=== PATIENT | female | born 1965 | race Caucasian/White ===

== ENCOUNTER 2016-10-21 15:14 | Emergency (ER) | payer BC, OTHER ==
--- NOTE | 2016-10-21 17:46 | ED ---
General Adult HPI - General Chief complaint: GI Bleed Stated complaint: rectal bleeding Time Seen by Provider: 10/21/16 17:23 Source: patient, RN notes reviewed Mode of arrival: ambulatory Limitations: no limitations - History of Present Illness Initial comments: 51-year-old female presenting for GI bleeding. Patient states she noticed a small amount of blood when wiping after a bowel movement this morning at home. She states that she had planned follow-up with her regular doctor but she went to work and at work she noticed that she had persistent bleeding. She states she called her doctor's office recommended she go to the ER further evaluation and treatment. She denies any history of GI bleeding. She states she did have a colonoscopy a few years ago that was unremarkable at that time. She denies any history of diverticulosis or diverticulitis. She denies any abdominal pain associated with this. She denies any nausea or vomiting. She denies any chest pain or first about - Related Data Home Medications Medication Instructions Recorded Confirmed Cholecalciferol [Vitamin D3] 1,000 unit PO DAILY 09/09/14 10/21/16 Citalopram Hydrobromide [CeleXA] 20 mg PO DAILY 09/09/14 10/21/16 Diclofenac Potassium [Cataflam] 50 mg PO BID 09/09/14 10/21/16 Multivitamins, Thera [Multivitamin] 1 tab PO DAILY 09/09/14 10/21/16 Omeprazole [PriLOSEC] 20 mg PO AC-BRKFST 09/09/14 10/21/16 Atorvastatin [Lipitor] 40 mg PO DAILY 10/21/16 10/21/16 HYDROcodone/APAP 7.5-325MG [[place] 1 tab PO Q6HR PRN 10/21/16 10/21/16 7.5-325] metFORMIN HCL 1,000 mg PO BID 10/21/16 10/21/16 Previous Rx's Medication Instructions Recorded Phenyleph/Mineral Oil/Petrolat 1 applic RECTAL Q4HR #57 gm 10/21/16 [Preparation H Ointment] Allergies Allergy/AdvReac Type Severity Reaction Status Date / Time No Known Allergies Allergy Verified 10/21/16 18:26 Review of Systems ROS Statement: Those systems with pertinent positive or pertinent negative responses have been documented in the HPI. ROS Other: All systems not noted in ROS Statement are negative. Past Medical History Past Medical History: Diabetes Mellitus, Osteoarthritis (OA) Additional Past Medical History / Comment(s): KIDNEY STONES History of Any Multi-Drug Resistant Organisms: MRSA Date of last positivie culture/infection: 2011 MDRO Source:: abdomen Past Surgical History: Adenoidectomy, Cholecystectomy, Hysterectomy, Tonsillectomy Additional Past Surgical History / Comment(s): bilateral carpal tunnel release , right shoulder, eyes,ABDOMINAL WOUND Past Anesthesia/Blood Transfusion Reactions: No Reported Reaction Past Psychological History: Depression Smoking Status: Former smoker Past Alcohol Use History: None Reported Past Drug Use History: None Reported - Past Family History Sister(s) Family Medical History: Cancer General Exam - General Exam Comments Initial Comments: General: Awake and Alert. No acute distress. Does not appear acutely ill. Obese. Eyes: HERIBERTO, EOM intact. No nystagmus. No scleral icterus. HENT: Atraumatic, normocephalic. Mucous membranes moist. Trachea midline. Neck: The neck is supple, there is no tenderness or JVD. Cardiovascular: Regular rate and rhythm. No murmur, rub, or gallop is appreciated. Distal pulses intact. Respiratory: Lungs are clear to auscultation bilaterally. No wheezes, rales, rhonchi. No respiratory distress. Gastrointestinal: Soft, Nontender. No rebound or guarding. Non-distended. No masses or organomegaly noted. No CVA tenderness. Genitourinary: Rectal exam with internal and external hemorrhoids present. There is red blood around the anus and internal. There are no fissures. There are no significant internal masses. Normal rectal tone. Nurse Margarita present for rectal exam Musculoskeletal: No tenderness. Normal ROM. No gross deformity. No strength deficits. Neurological: A&Ox3. CN II-XII grossly intact, There are no obvious motor or sensory deficits. Coordination appears grossly intact. Speech is normal. Skin: Skin is warm and dry and no rashes or lesions are noted. Psychiatric: Cooperative, appropriate mood & affect, normal judgment. Limitations: no limitations Course Vital Signs 10/21/16 10/21/16 16:24 18:33 Temperature 98.8 F 97.8 F Pulse Rate 65 59 L Respiratory 18 16 Rate Blood Pressure 136/71 128/60 O2 Sat by Pulse 98 99 Oximetry Medical Decision Making - Medical Decision Making 51-year-old female presented for rectal bleeding. Exam with internal and external hemorrhoids. This is likely source of bleeding as there is red blood present on rectal exam. There is no abdominal tenderness or pain on exam or history. Lab work with stable hemoglobin. BMP is stable. Occult stool testing was positive. She was reevaluated and remained stable. Updated on results. Discussed treatment for hemorrhoids as likely cause of bleed, however discussed close follow-up with PCP for further monitoring. Discussed need for repeat colonoscopy for further evaluation as well. Patient states she will get referral for this through her PCP. Discussed concerning signs symptoms for immediate return to the ED. Patient is agreeable with plan discharge home. - Lab Data Result diagrams: 10/21/16 17:35 10/21/16 17:35 Lab Results 10/21/16 10/21/16 10/21/16 Range/Units 17:35 17:35 17:35 WBC 9.1 (3.8-10.6) k/uL RBC 4.45 (3.80-5.40) m/uL Hgb 13.6 (11.4-16.0) gm/dL Hct 40.5 (34.0-46.0) % MCV 91.0 (80.0-100.0) fL MCH 30.4 (25.0-35.0) pg MCHC 33.5 (31.0-37.0) g/dL RDW 13.0 (11.5-15.5) % Plt Count 315 (150-450) k/uL Neutrophils % 62 % Lymphocytes % 27 % Monocytes % 4 % Eosinophils % 4 % Basophils % 1 % Neutrophils # 5.7 (1.3-7.7) k/uL Lymphocytes # 2.5 (1.0-4.8) k/uL Monocytes # 0.4 (0-1.0) k/uL Eosinophils # 0.3 (0-0.7) k/uL Basophils # 0.1 (0-0.2) k/uL Sodium 141 (137-145) mmol/L Potassium 4.3 (3.5-5.1) mmol/L Chloride 103 (98-107) mmol/L Carbon Dioxide 31 H (22-30) mmol/L Anion Gap 7 mmol/L BUN 14 (7-17) mg/dL Creatinine 0.50 L (0.52-1.04) mg/dL Est GFR (MDRD) Af Amer >60 (>60 ml/min/1.73 sqM) Est GFR (MDRD) Non-Af >60 (>60 ml/min/1.73 sqM) Glucose 160 H (74-99) mg/dL Calcium 9.3 (8.4-10.2) mg/dL Total Bilirubin 0.5 (0.2-1.3) mg/dL AST 26 (14-36) U/L ALT 33 (9-52) U/L Alkaline Phosphatase 90 (38-126) U/L Total Protein 6.5 (6.3-8.2) g/dL Albumin 3.7 (3.5-5.0) g/dL Lipase 50 (23-300) U/L Stool Occult Blood Positive H (Negative) Disposition Clinical Impression: Rectal bleeding, Hemorrhoids Disposition: HOME SELF-CARE Condition: Stable Instructions: Gastrointestinal Bleeding (ED), Hemorrhoids (ED) Additional Instructions: Please discussed arranging a colonoscopy with your primary doctor Prescriptions: Phenyleph/Mineral Oil/Petrolat [Preparation H Ointment] 1 applic RECTAL Q4HR # 57 gm Referrals: Jordin Whitley DO [Primary Care Provider] - 1-2 days
[2016-10-21 17:47] LABS: Basophils # (A) 0.1 k/uL (0-0.2); Basophils % (A) 1 %; CH 30.9; CHCM 34.1; Eosinophils # (A) 0.3 k/uL (0-0.7); Eosinophils % (A) 4 %; HCT 40.5 % (34.0-46.0); HDW 2.53; HGB 13.6 gm/dL (11.4-16.0); Luc # (Auto) 0.24; Luc % (Auto) 3; Lymphocytes # (A) 2.5 k/uL (1.0-4.8); Lymphocytes % (A) 27 %; MCH 30.4 pg (25.0-35.0); MCHC 33.5 g/dL (31.0-37.0); Mean Platelet Volume 7.7; Monocytes # (A) 0.4 k/uL (0-1.0); Monocytes % (A) 4 %; Neutrophils # (A) 5.7 k/uL (1.3-7.7); Neutrophils % (A) 62 %; RBC 4.45 m/uL (3.80-5.40); WBC 9.1 k/uL (3.8-10.6); WBC (Perox) 8.89
[2016-10-21 18:06] LABS: ALT 33 U/L (9-52); AST 26 U/L (14-36); Alkaline Phosphatase 90 U/L (38-126); Anion Gap 7 mmol/L; Blood Urea Nitrogen 14 mg/dL (7-17); Calcium 9.3 mg/dL (8.4-10.2); Carbon Dioxide 31 mmol/L (22-30); Chloride 103 mmol/L (98-107); Glucose 160 mg/dL (74-99); Non-African American GFR(MDRD) >60 (>60 ml/min/1.73 sqM); Potassium 4.3 mmol/L (3.5-5.1); Sodium 141 mmol/L (137-145); Total Bilirubin 0.5 mg/dL (0.2-1.3); Total Protein 6.5 g/dL (6.3-8.2)
[2016-10-21 18:34] VITALS: BP 128/60; PULSE 59; RESP 16; TEMP 97.8
== END 2016-10-21 18:52 | disposition home or self-care (01) ==
LOC: EC 15:14
DX: K64.8 Other hemorrhoids (principal); E11.9 Type 2 diabetes mellitus without complications; M19.90 Unspecified osteoarthritis, unspecified site; F32.9 Major depressive disorder, single episode, unspecified; Z79.1 Long term (current) use of non-steroidal anti-inflammatories (NSAID); Z79.84 Long term (current) use of oral hypoglycemic drugs; Z79.899 Other long term (current) drug therapy; Z87.891 Personal history of nicotine dependence
CPT/HCPCS: 36415; 80053; 82272; 83690; 85025; 99284

== ENCOUNTER → 2017-05-13 | Outpatient (CLI) | payer BC, OTHER ==
--- NOTE | 2017-05-14 07:18 | MM ---
Reason for exam: screening (asymptomatic). Last mammogram was performed 1 year ago. History: Patient is postmenopausal, has history of high-risk lesion on a previous biopsy at age 41, and is nulliparous. High risk left mammotome panel of the left breast, March 23, 2007. Physical Findings: A clinical breast exam by your physician is recommended on an annual basis and results should be correlated with mammographic findings. MG Screening Mammo w CAD Bilateral CC and MLO view(s) were taken. Prior study comparison: May 13, 2016, bilateral MG screening mammo w CAD. April 15, 2015, bilateral MG screening mammo w CAD. There are scattered fibroglandular densities. No suspicious abnormality. No significant changes when compared with prior studies. ASSESSMENT: Negative, BI-RAD 1 RECOMMENDATION: Routine screening mammogram of both breasts in 1 year.
== END | disposition home or self-care (01) ==
LOC: RADMAMWWP 08:13
PROVIDERS: ATTEND Family Medicine
DX: Z12.31 Encounter for screening mammogram for malignant neoplasm of breast (principal)

== ENCOUNTER 2017-05-24 12:49 | Emergency (ER) | payer BC, OTHER ==
[2017-05-24] MEDS ORDERED: ASPIRIN 81 MG PO STA (12:59)
--- NOTE | 2017-05-24 13:02 | ED ---
General Adult HPI - General Chief complaint: Abdominal Pain Stated complaint: Abd Pain Time Seen by Provider: 05/24/17 12:55 Source: patient, RN notes reviewed Mode of arrival: ambulatory Limitations: no limitations - History of Present Illness Initial comments: 51-year-old female presents emergency per chief complaint of epigastric abdominal pain and chest pain and back pain. Patient states that today so she is working in the [employer]. Patient states that for about a week now she's had this pain to the right side of her chest epigastric area right upper quadrant and into her back. She states the pain is chest is constant terrible pain. She has nausea without vomiting. She went to her doctor on was evaluated he said it might be gallstones. She states she was scheduled for an ultrasound for 2 weeks but she does not feels if she could weeks along. Patient states that there is a shortness of breath with this. Patient states that she was concerned because she just continues to have this discomfort. Patient states she is not currently having any other symptoms at this time. Patient denies any recent fever, chills, shortness of breath, vomiting, numbness or tingling, dysuria or hematuria, constipation or diarrhea, headaches or visual changes, or any other current symptoms. - Related Data Home Medications Medication Instructions Recorded Confirmed Citalopram Hydrobromide [CeleXA] 20 mg PO DAILY 09/09/14 05/24/17 Diclofenac Potassium [Cataflam] 50 mg PO DAILY 09/09/14 05/24/17 Multivitamins, Thera [Multivitamin] 1 tab PO DAILY 09/09/14 05/24/17 Omeprazole [PriLOSEC] 20 mg PO AC-BRKFST 09/09/14 05/24/17 HYDROcodone/APAP 7.5-325MG [[place] 1 tab PO Q6HR PRN 10/21/16 05/24/17 7.5-325] metFORMIN HCL [Glucophage] 500 mg PO DAILY 05/24/17 05/24/17 Allergies Allergy/AdvReac Type Severity Reaction Status Date / Time No Known Allergies Allergy Verified 05/24/17 13:54 Review of Systems ROS Statement: Those systems with pertinent positive or pertinent negative responses have been documented in the HPI. ROS Other: All systems not noted in ROS Statement are negative. Past Medical History Past Medical History: Diabetes Mellitus, Osteoarthritis (OA) Additional Past Medical History / Comment(s): KIDNEY STONES History of Any Multi-Drug Resistant Organisms: MRSA Date of last positivie culture/infection: 2011 MDRO Source:: abdomen Past Surgical History: Adenoidectomy, Cholecystectomy, Hysterectomy, Tonsillectomy Additional Past Surgical History / Comment(s): bilateral carpal tunnel release , right shoulder, eyes,ABDOMINAL WOUND, salivary gland Past Anesthesia/Blood Transfusion Reactions: No Reported Reaction Past Psychological History: Depression Smoking Status: Former smoker Past Alcohol Use History: None Reported Past Drug Use History: None Reported - Past Family History Sister(s) Family Medical History: Cancer General Exam - General Exam Comments Initial Comments: General: The patient is awake and alert, in no distress, and does not appear acutely ill. Eye: Pupils are equal, round and reactive to light, extra-ocular movements are intact; there is normal conjunctiva bilaterally. No signs of icterus. Ears, nose, mouth and throat: There are moist mucous membranes and no oral lesions. Neck: The neck is supple, there is no tenderness. Cardiovascular: There is a regular rate and rhythm. No murmur, rub or gallop is appreciated. Respiratory: Lungs are clear to auscultation, respirations are non-labored, breath sounds are equal. No wheezes, stridor, rales, or rhonchi. Tenderness patient on the right upper chest wall and along the upper right side of the back Gastrointestinal: Soft, non-distended, non-tender abdomen without masses or organomegaly noted. There is no rebound or guarding present. No CVA tenderness. Bowel sounds are unremarkable. Back: There is no tenderness to palpation in the midline. There is no obvious deformity. No rashes noted. Musculoskeletal: Normal ROM, no tenderness, There is no pedal edema. There is no calf tenderness or swelling. Sensation intact. Pulses equal bilaterally 2+. Neurological: CN II-XII intact, There are no obvious motor or sensory deficits. Coordination appears grossly intact. Speech is normal. Skin: Skin is warm and dry and no rashes or lesions are noted. Psychiatric: Cooperative, appropriate mood & affect, normal judgment. Limitations: no limitations Course Vital Signs 05/24/17 05/24/17 12:50 13:53 Temperature 98.7 F Pulse Rate 56 L 53 L Respiratory 18 16 Rate Blood Pressure 174/72 154/66 O2 Sat by Pulse 95 93 L Oximetry EKG Findings - EKG Comments: EKG Findings:: Sinus bradycardia bpm, normal axis, no atopy, no S-T depressions or elevations, Medical Decision Making - Medical Decision Making 51-year-old female presents for epigastric right upper quadrant and tender chest wall and upper back pain. At this time patient has been having the pain since . Find cardiac workup is negative. At this time ultrasound showing fatty liver infiltration most likely this is causing the patient's type pain. We discussed follow-up with her doctor we discussed [facility] [place] and all the patient's questions. She stated that she understood and she is in agreement with plan. All questions have been answered. She will be discharged. - Lab Data Result diagrams: 05/24/17 13:08 05/24/17 13:54 Lab Results 05/24/17 05/24/17 05/24/17 Range/Units 13:08 13:08 13:08 WBC 5.5 (3.8-10.6) k/uL RBC 4.50 (3.80-5.40) m/uL Hgb 13.3 (11.4-16.0) gm/dL Hct 40.5 (34.0-46.0) % MCV 90.0 (80.0-100.0) fL MCH 29.5 (25.0-35.0) pg MCHC 32.8 (31.0-37.0) g/dL RDW 12.9 (11.5-15.5) % Plt Count 359 (150-450) k/uL Neutrophils % 62 % Lymphocytes % 26 % Monocytes % 5 % Eosinophils % 6 % Basophils % 1 % Neutrophils # 3.4 (1.3-7.7) k/uL Lymphocytes # 1.4 (1.0-4.8) k/uL Monocytes # 0.3 (0-1.0) k/uL Eosinophils # 0.3 (0-0.7) k/uL Basophils # 0.1 (0-0.2) k/uL PT 11.7 (9.0-12.0) sec INR 1.2 H (<1.2) APTT 25.4 (22.0-30.0) sec Sodium (137-145) mmol/L Potassium (3.5-5.1) mmol/L Chloride (98-107) mmol/L Carbon Dioxide (22-30) mmol/L Anion Gap mmol/L BUN (7-17) mg/dL Creatinine (0.52-1.04) mg/dL Est GFR (MDRD) Af Amer (>60 ml/min/1.73 sqM) Est GFR (MDRD) Non-Af (>60 ml/min/1.73 sqM) Glucose (74-99) mg/dL Calcium (8.4-10.2) mg/dL Magnesium (1.6-2.3) mg/dL Total Bilirubin (0.2-1.3) mg/dL AST (14-36) U/L ALT (9-52) U/L Alkaline Phosphatase (38-126) U/L Total Creatine Kinase 105 (30-135) U/L CK-MB (CK-2) 2.1 (0.0-2.4) ng/mL CK-MB (CK-2) Rel Index 2.0 Troponin I <0.012 (0.000-0.034) ng/mL Total Protein (6.3-8.2) g/dL Albumin (3.5-5.0) g/dL Amylase (30-110) U/L Lipase (23-300) U/L Urine Color Urine Appearance (Clear) Urine pH (5.0-8.0) Ur Specific [place] (1.001-1.035) Urine Protein (Negative) Urine Glucose (UA) (Negative) Urine Ketones (Negative) Urine Blood (Negative) Urine Nitrite (Negative) Urine Bilirubin (Negative) Urine Urobilinogen (<2.0) mg/dL Ur Leukocyte Esterase (Negative) 05/24/17 05/24/17 Range/Units 13:54 14:12 WBC (3.8-10.6) k/uL RBC (3.80-5.40) m/uL Hgb (11.4-16.0) gm/dL Hct (34.0-46.0) % MCV (80.0-100.0) fL MCH (25.0-35.0) pg MCHC (31.0-37.0) g/dL RDW (11.5-15.5) % Plt Count (150-450) k/uL Neutrophils % % Lymphocytes % % Monocytes % % Eosinophils % % Basophils % % Neutrophils # (1.3-7.7) k/uL Lymphocytes # (1.0-4.8) k/uL Monocytes # (0-1.0) k/uL Eosinophils # (0-0.7) k/uL Basophils # (0-0.2) k/uL PT (9.0-12.0) sec INR (<1.2) APTT (22.0-30.0) sec Sodium 139 (137-145) mmol/L Potassium 4.0 (3.5-5.1) mmol/L Chloride 104 (98-107) mmol/L Carbon Dioxide 29 (22-30) mmol/L Anion Gap 6 mmol/L BUN 9 (7-17) mg/dL Creatinine 0.60 (0.52-1.04) mg/dL Est GFR (MDRD) Af Amer >60 (>60 ml/min/1.73 sqM) Est GFR (MDRD) Non-Af >60 (>60 ml/min/1.73 sqM) Glucose 154 H (74-99) mg/dL Calcium 9.0 (8.4-10.2) mg/dL Magnesium 1.7 (1.6-2.3) mg/dL Total Bilirubin 0.5 (0.2-1.3) mg/dL AST 28 (14-36) U/L ALT 42 (9-52) U/L Alkaline Phosphatase 104 (38-126) U/L Total Creatine Kinase (30-135) U/L CK-MB (CK-2) (0.0-2.4) ng/mL CK-MB (CK-2) Rel Index Troponin I (0.000-0.034) ng/mL Total Protein 5.9 L (6.3-8.2) g/dL Albumin 3.2 L (3.5-5.0) g/dL Amylase <30 L (30-110) U/L Lipase 44 (23-300) U/L Urine Color Yellow Urine Appearance Clear (Clear) Urine pH 8.5 H (5.0-8.0) Ur Specific [place] 1.011 (1.001-1.035) Urine Protein Negative (Negative) Urine Glucose (UA) Negative (Negative) Urine Ketones Negative (Negative) Urine Blood Negative (Negative) Urine Nitrite Negative (Negative) Urine Bilirubin Negative (Negative) Urine Urobilinogen <2.0 (<2.0) mg/dL Ur Leukocyte Esterase Negative (Negative) - Radiology Data Radiology results: report reviewed, image reviewed Disposition Clinical Impression: Fatty liver, Abdominal pain Disposition: HOME SELF-CARE Condition: Stable Instructions: Abdominal Pain (ED) Additional Instructions: Please use medication as discussed. Please follow up with family doctor if symptoms have not improved over the next two days. Please return to the emergency room if your symptoms increase or worsen or for any other concerns. Referrals: Jordin Whitley DO [Primary Care Provider] - 1-2 days Time of Disposition: 15:42
[2017-05-24 13:25] LABS: Basophils # (A) 0.1 k/uL (0-0.2); Basophils % (A) 1 %; CHCM 33.4; Eosinophils # (A) 0.3 k/uL (0-0.7); Eosinophils % (A) 6 %; HCT 40.5 % (34.0-46.0); HDW 2.43; HGB 13.3 gm/dL (11.4-16.0); Luc # (Auto) 0.08; Luc % (Auto) 2; Lymphocytes # (A) 1.4 k/uL (1.0-4.8); Lymphocytes % (A) 26 %; MCH 29.5 pg (25.0-35.0); MCHC 32.8 g/dL (31.0-37.0); Monocytes # (A) 0.3 k/uL (0-1.0); Monocytes % (A) 5 %; Neutrophils # (A) 3.4 k/uL (1.3-7.7); Neutrophils % (A) 62 %; RDW 12.9 % (11.5-15.5); WBC 5.5 k/uL (3.8-10.6); WBC (Perox) 5.52
[2017-05-24 13:38] LABS: Partial Thromboplastin Time 25.4 sec (22.0-30.0)
[2017-05-24 13:40] LABS: INR 1.2 (<1.2); Prothrombin Time 11.7 sec (9.0-12.0)
[2017-05-24 13:46] LABS: Creatine Kinase 105 U/L (30-135)
[2017-05-24 13:57] LABS: Creatine Kinase MB 2.1 ng/mL (0.0-2.4); Troponin I <0.012 ng/mL (0.000-0.034)
[2017-05-24 13:58] VITALS: RESP 16
[2017-05-24 14:19] LABS: Appearance,Urine Clear (Clear); Bilirubin,Urine Negative (Negative); Glucose,Urine (UA) Negative (Negative); Ketones,Urine Negative (Negative); Leukocyte Esterase,Urine Negative (Negative); Nitrite,Urine Negative (Negative); PH, Urine 8.5 (5.0-8.0); Protein,Urine Negative (Negative); Specific Gravity,Urine 1.011 (1.001-1.035); UA Billing (MACRO vs. MICRO) CHEM; Urobilinogen,Urine <2.0 mg/dL (<2.0)
[2017-05-24 14:27] LABS: ALT 42 U/L (9-52); AST 28 U/L (14-36); Alkaline Phosphatase 104 U/L (38-126); Amylase <30 U/L (30-110); Anion Gap 6 mmol/L; Blood Urea Nitrogen 9 mg/dL (7-17); Carbon Dioxide 29 mmol/L (22-30); Chloride 104 mmol/L (98-107); Glucose 154 mg/dL (74-99); Magnesium 1.7 mg/dL (1.6-2.3); Non-African American GFR(MDRD) >60 (>60 ml/min/1.73 sqM); Sodium 139 mmol/L (137-145); Total Bilirubin 0.5 mg/dL (0.2-1.3); Total Protein 5.9 g/dL (6.3-8.2)
--- NOTE | 2017-05-24 14:32 | XR ---
EXAMINATION TYPE: XR chest 2V DATE OF EXAM: 05/24/2017 COMPARISON: Prior chest x-ray 09/09/2014 HISTORY: Chest pain TECHNIQUE: Frontal and lateral views of the chest are obtained. FINDINGS: There is no focal air space opacity, pleural effusion, or pneumothorax seen. The cardiac silhouette size is stable. There are overlying cardiac leads. Postop change noted to the right should er. Surgical clips present in the right upper quadrant. The osseous structures are intact. IMPRESSION: No acute cardiopulmonary process.
--- NOTE | 2017-05-24 15:16 | US ---
EXAMINATION TYPE: US gallbladder DATE OF EXAM: 05/24/2017 COMPARISON: CT abdomen and pelvis July 02 2012 CLINICAL HISTORY: Pain. EXAM MEASUREMENTS: Liver Length: 19.8 cm Gallbladder Wall: Surgically absent CBD: 0.4 cm Right Kidney: 9.7 x 4.5 x 4.6 cm Pancreas: Obscured by bowel gas Liver: Enlarged, Heterogeneous Gallbladder: Surgically absent Evidence for sonographic Dang's sign: No CBD: wnl as visualized Right Kidney: No hydronephrosis or masses seen Visualized pancreas is slightly heterogeneous in appearance without suspicious mass or ductal dilatat ion. Visualized liver is heterogeneously hyperechoic in appearance consistent with diffuse fatty infi ltration. No intrapelvic ductal dilatation seen. Evaluation for focal masses is suboptimal due to the heterogeneity. Gallbladder is surgically absent. IMPRESSION: Diffuse fatty infiltration of liver redemonstrated. Cholecystectomy changes noted.
[2017-05-24 16:14] VITALS: BP 137/63; PULSE 54
[2017-05-24 16:17] VITALS: TEMP 98.2
== END 2017-05-24 16:23 | disposition home or self-care (01) ==
LOC: EC 12:49
DX: K76.0 Fatty (change of) liver, not elsewhere classified (principal); R10.13 Epigastric pain; R07.9 Chest pain, unspecified; M54.9 Dorsalgia, unspecified; R11.0 Nausea; R10.11 Right upper quadrant pain; R06.02 Shortness of breath; E11.9 Type 2 diabetes mellitus without complications; F32.9 Major depressive disorder, single episode, unspecified; M19.90 Unspecified osteoarthritis, unspecified site; Z87.891 Personal history of nicotine dependence; Z79.1 Long term (current) use of non-steroidal anti-inflammatories (NSAID); Z79.84 Long term (current) use of oral hypoglycemic drugs; Z79.899 Other long term (current) drug therapy; Z90.49 Acquired absence of other specified parts of digestive tract
CPT/HCPCS: 36415; 71020; 76705; 80053; 81003; 82150; 82550; 82553; 83690; 83735; 84484; 85025; 85610; 85730; 93005; 99284

== ENCOUNTER 2017-12-09 09:59 | Day surgery (SDC) | payer BC, OTHER ==
[2017-12-06 13:50] VITALS: BMI 48.4
[~2017-12-09 09:59] MED LIST: ACETAMINOPHEN TAB 500 MG TAB PO ONE; DEXAMETHASONE SOD PHOSPHATE 10 MG/ML 1 ML VIAL IV ONE; MORPHINE SULFATE 4 MG/ML SYRINGE IV PRN; ONDANSETRON ODT 4 MG TAB PO ONE; ceFAZolin IN SWFI 2 GM/20 ML SYRINGE IVP ONE
[2017-12-09 10:51] LABS: Glucose,Whole Blood 116 mg/dL (75-99)
[2017-12-09] MEDS: LACTATED RINGERS 1,000 ML IV SCH ×2 (10:52→11:33)
[2017-12-09] MEDS: fentaNYL (PF) 50 MCG/ML 2 ML AMP ONE ×2 (11:01→11:31)
[2017-12-09] MEDS: MIDAZOLAM 2 MG/2 ML VIAL IV PRN ×2 (11:01→11:31)
[2017-12-09] MEDS ORDERED: ONDANSETRON 4 MG/2 ML VIAL ONE (11:03)
[2017-12-09] MEDS ORDERED: ONDANSETRON 4 MG/2 ML VIAL IVP ONE (11:08)
[2017-12-09] MEDS ORDERED: SUCCINYLCHOLINE CHLORIDE 100 MG/5 ML SYR IV ONE (11:33)
[2017-12-09] MEDS ORDERED: PROPOFOL 10 MG/ML 20 ML VIAL IV ONE (11:33)
[2017-12-09] MEDS ORDERED: LIDOCAINE 1% INJ 10MG/ML (20 ML MDV) ONE (11:33)
[2017-12-09] MEDS ORDERED: ROCURONIUM BROMIDE 10 MG/ML 10 ML VIAL IV ONE (11:33)
[2017-12-09] MEDS ORDERED: fentaNYL (PF) 50 MCG/ML 2 ML AMP ONE (11:33)
--- NOTE | 2017-12-09 11:52 | P.ONQ ---
Anesthesiology Proc Note - PNB - Peripheral Nerve Block Performed Left Interscalene Single Time Out Performed: Yes Procedure Start Time: 11:00 Indication: Acute Post-Operative Pain, Analgesia Specifically requested for management of pain by DrMarcelino: Anthony Duong Sedation Type: Sedate with meaningful contact maintained Preparation: Sterile Prep Position: Supine Catheter: None Needle Types: Other (see comment) (Pajunk) Needle Size: 50mm (2") Needle Gauge: 21 Technique: Ultrasound Injectate: 0.5% Ropivacaine (see comment for volume) (25 cc) Blood Aspirated: No Pain Paresthesia on Injection Noted: No Resistance on Injection: Normal Events: Uneventful and Well Tolerated
[2017-12-09 13:32] VITALS: TEMP 97.6
[2017-12-09 13:34] VITALS: RESP 16
[2017-12-09 14:25] LABS: Glucose,Whole Blood 129 mg/dL (75-99)
[2017-12-09 15:03] VITALS: BP 111/72; PULSE 53
--- NOTE | 2017-12-09 15:32 | OP ---
OPERATIVE REPORT DATE OF PROCEDURE: 12/09/2017. PREOPERATIVE DIAGNOSES: 1. Left shoulder large full-thickness rotator cuff tear. 2. Left shoulder superior labral tear. 3. Left shoulder bicipital tenosynovitis. 4. Left shoulder subacromial impingement. POSTOPERATIVE DIAGNOSES: 1. Left shoulder large full-thickness rotator cuff tear. 2. Left shoulder superior labral tear. 3. Left shoulder bicipital tenosynovitis. 4. Left shoulder subacromial impingement. PROCEDURE PERFORMED: 1. Left shoulder arthroscopic rotator cuff repair. 4 cm x 3 cm tear of the supraspinatus and infraspinatus. 2. Left shoulder arthroscopic acromioplasty. 3. Left shoulder arthroscopic biceps tenotomy. 4. Left shoulder anterior superior and posterior labral debridement. SURGEON: Sesar Dang MD. ANESTHESIA: General endotracheal. ESTIMATED BLOOD LOSS: Was minimal. TOURNIQUET: None. DRAINS: None. COMPLICATIONS: None apparent. DISPOSITION: Postanesthesia care unit. EXAMINATION: Under anesthesia, left shoulder elevation 160 degrees, external rotation at the side to 40, external rotation at 90 degrees abduction was 90 degrees internal rotation 90 degrees abduction was 60 degrees, sulcus less than 1 cm, anterior translation glenoid face, posterior translation glenoid face. ARTHROSCOPIC FINDINGS: Left shoulder: 1. Superior labrum type 2 superior labral tear tearing both anterior portion of the biceps anchor. The biceps anchor was also medially subluxed out of the bicipital groove. There was partial tearing of the intra-articular portion of long head of the biceps tendon as well. 2. Anterior inferior labrum normal. Normal glenoid labral attachment. 3. Posterior labrum tearing the posterior labrum from the 10 o'clock position up to the 12 o'clock position on the glenoid face. 4. Rotator cuff massive full-thickness tear of the entire supraspinatus and the infraspinatus measuring 4 cm x 3 cm. 5. Glenoid face cartilage diffuse grade 1 change. 6. Subacromial space significant fraying of the undersurface of the coracoacromial ligament with a type 2 anterolateral acromial spur. INDICATIONS: Maren is a very pleasant 52-year-old female who sustained an injury to her left shoulder several months ago. She has noted weakness as well as significant pain in the shoulder. Physical examination and MRI revealed met a large to massive tearing of the rotator cuff. At this point, she feels that she has failed nonoperative treatment. I would like to proceed with operative intervention. I had a long discussion held with her with regard to treatment options. The risks of procedure were all discussed with her in detail. These risks include, but are not limited to risk of infection, nerve damage, bleeding, pain, and a small risk of deep vein thrombosis which could lead to fatal pulmonary embolism. Further risks include lack of healing rotator cuff and possibility for biceps contour change with a biceps tenotomy. The patient understands the operation as well as the fact there was no guarantee of improvement of her symptoms. Appropriate informed consent was obtained. DESCRIPTION OF THE PROCEDURE: Patient identified in preoperative holding area. Surgical sites marked by both the patient and myself. She was given 2 g of Ancef IV for prophylactic purposes. She was then transported to the operative suite. She was placed supine on the operative table. The patient was then intubated endotracheally and received general anesthesia throughout the operative procedure. Examination under anesthesia was then performed and the findings were noted above. The patient was then placed into the beach chair position well-padded in preparation for surgery. Great care was taken to ensure the cervical spine is in neutral alignment well-padded and maintained that way throughout the operative procedure. Great care was also taken unit to ensure that her legs were appropriately padded as well. The patient's left upper extremity is then prepped and draped in usual sterile fashion. Standard surgical pause undertaken to ensure that appropriate preoperative antibiotics were given and that we were operating the correct site. All staff in the room in agreement and we proceeded. The acromion as well as the AC joint coracoid marked surgical pen. The skin of the anticipated port sites were also marked surgical pen. The skin of the anticipated portal sites were then injected with 0.25% Marcaine with epinephrine. I then proceeded to make a posterior portal. A 30 degree arthroscope was introduced in the glenohumeral joint through this portal. The arthroscopic pump pressure was set at 40 mmHg and maintained at that level throughout the entire case. Next utilizing an 18-gauge spinal needle topical localized placement, the anterior superior portal was made. This was made just underneath the biceps tendon high in the rotator interval. A small 5.75 mm cannula was then placed and the outflow was then done through this cannula. Diagnostic arthroscopy of the shoulder was then performed. The findings noted above. Great care was taken to probe superior labral complex as well as the biceps anchor. The biceps anchor was not firmly attached. She had significant tear in the superior labrum. This extended both anterior and posterior to biceps anchor. The intra- articular portion of long head of the biceps tendon did have partial tearing as well. At this point I proceeded with a biceps tenotomy. The biceps was tenotomized at its attachment on the supraglenoid tubercle. This was done utilizing the ArthroCare wand. I then proceeded to debride the torn loose tissue superior labrum. This was debrided anteriorly, superiorly and posteriorly back to stable tissue. I then inspected the rotator cuff from intra-articular. She did have a massive full- thickness tear of the entire supraspinatus and infraspinatus. At this point in time no further work was deemed necessary from intra-articular. The arthroscope was removed from the glenohumeral joint and utilizing the same posterior skin incision was placed in the subacromial space. Next utilizing an 18-gauge spinal needle topical localized placement, a lateral portal was made under direct visualization. Subacromial bursectomy was then performed utilizing synovial shaver as well as the ArthroCare wand. There was significant fraying of the undersurface of the coracoacromial ligament. This was taken down utilizing the ArthroCare wand. Then this exposed underlying type 2 anterolateral acromial spur. I then proceeded with an acromioplasty. Utilizing synovial shaver in a payton-type fashion the acromioplasty was completed. When the acromioplasty was complete, the arthroscope was placed in the lateral portal and the shaver placed posteriorly to ensure there was adequate and coplanar with posterior aspect of the acromion. I then proceeded to repair the rotator cuff tear. She had a very massive tear of the entire supraspinatus and the infraspinatus. This measured approximately 4 cm x 3 cm. The footprint of the greater tuberosity was then debrided of all devitalized tissue utilizing synovial shaver as well as the ArthroCare wand. I then performed a light decortication of the greater tuberosity utilizing synovial shaver in a payton type fashion. This provided a nice bleeding surface with repair. I then placed small microfracture holes along the articular margin to again enhance healing of the repair. I then utilized scorpion suture passer and placed Arthrex fiber tape suture in inverted horizontal mattress fashion in the posterior third of the tear. The sutures were shuttled out through the posterior portal. I then utilized scorpion suture passer, placed a second Arthrex FiberTape suture in inverted horizontal mattress fashion in the central 3rd of the tear. The sutures were shuttled out through the posterior portal. I then placed a 3rd Arthrex fiber tape suture in inverted horizontal mattress fashion. The anterior 1/3 of the tear. The sutures were then shuttled out through the anterior portal. The middle sutures were also then shuttled out through the anterior portal. I then made a 4th portal off the anterolateral aspect of the acromion. Again this was 1st localized with an 18-gauge spinal needle. I then moved the arthroscope into the anterolateral portal and then pulled the posterior sutures out through the lateral portal. The awl was then placed. The most posterior lateral aspect of the footprint. She had good bone quality. An Arthrex 4.75 mm bio SwiveLock anchor was chosen. The posterior fiber tape sutures were shuttled through the anchor, tensioned appropriately and then placed with good purchase in bone. This brought the posterior third of the tear down very nicely the most posterior lateral aspect of the footprint. I then moved approximately 1-1.5 cm anterior and placed the awl again in the most lateral aspect of the footprint. The middle sutures were shuttled again. She had fairly good bone quality. An Arthrex 4.75 mm bio SwiveLock anchor was chosen. The sutures were shuttled through the anchor, tensioned appropriately and the anchor was placed with good purchase in bone. These FiberTape sutures were cut flush with the anchor. This brought the middle third of the tear down very nicely the most lateral middle aspect of the footprint. I then moved the arthroscope into the lateral portal and brought the anterior sutures out through the anterolateral portal. The awl was placed most anterolateral aspect of the footprint. This was just posterior to the bicipital groove. She had good bone quality in this area. Again, an Arthrex 4.75 mm bio SwiveLock anchor was chosen. The anterior fiber tape sutures were shuttled through the anchor, tensioned appropriately and then the anchor was placed with excellent purchase in bone. This brought the anterior third of the tear down very nicely to the most anterolateral aspect of the footprint. These FiberTape sutures were cut flush with the anchor. The repair was then probed. The rotator cuff had been brought down very nicely in the most lateral aspect of the footprint. All fiber tape sutures had good tension. The anchors were placed with the arm at the side without any undue tension on the repair. At this point, final arthroscopic images were taken. At this point time no further work was deemed necessary. The shoulder was thoroughly irrigated and then drained outflow cannula. The arthroscope was removed from the shoulder. The arthroscopic portals were then closed with 3-0 nylon interrupted suture. Sterile compressive dressings were then applied. The patient's left upper extremity was placed into a slingshot-type rotator cuff immobilizer. All sponge and needle counts were deemed correct prior to closure. The patient tolerated procedure without apparent complication. She was transferred recovery room in stable condition. MMSHEILA / ABBIE: [id number] /
== END 2017-12-09 15:30 | disposition home or self-care (01) ==
LOC: OR 09:59
PROVIDERS: ATTEND Orthopaedic Surgery Sports Medicine
DX: S46.012A Strain of muscle(s) and tendon(s) of the rotator cuff of left shoulder, initial encounter (principal); S43.492A Other sprain of left shoulder joint, initial encounter; M75.22 Bicipital tendinitis, left shoulder; M75.42 Impingement syndrome of left shoulder; S46.112A Strain of muscle, fascia and tendon of long head of biceps, left arm, initial encounter; W19.XXXA Unspecified fall, initial encounter; M19.012 Primary osteoarthritis, left shoulder; E11.9 Type 2 diabetes mellitus without complications; G58.9 Mononeuropathy, unspecified; F32.1 Major depressive disorder, single episode, moderate; E78.2 Mixed hyperlipidemia; G47.33 Obstructive sleep apnea (adult) (pediatric); K21.9 Gastro-esophageal reflux disease without esophagitis; K76.0 Fatty (change of) liver, not elsewhere classified; M48.061 Spinal stenosis, lumbar region without neurogenic claudication; I10 Essential (primary) hypertension; J44.9 Chronic obstructive pulmonary disease, unspecified; R91.1 Solitary pulmonary nodule; G89.29 Other chronic pain; E55.9 Vitamin D deficiency, unspecified; K91.5 Postcholecystectomy syndrome; M19.079 Primary osteoarthritis, unspecified ankle and foot; N20.0 Calculus of kidney; Z79.84 Long term (current) use of oral hypoglycemic drugs; Z79.891 Long term (current) use of opiate analgesic; Z79.899 Other long term (current) drug therapy; Z99.89 Dependence on other enabling machines and devices; Z88.1 Allergy status to other antibiotic agents; Z88.2 Allergy status to sulfonamides; Z86.14 Personal history of Methicillin resistant Staphylococcus aureus infection; Z87.891 Personal history of nicotine dependence
CPT/HCPCS: 29827; 29826; 64415; C1713 ×3; J2250; J1100; J0690; J2405; J2001; J3010; J0330; J2704

== ENCOUNTER → 2018-06-27 | Outpatient (CLI) | payer BC, OTHER ==
--- NOTE | 2018-06-28 14:32 | MM ---
Reason for exam: screening (asymptomatic). Last mammogram was performed 1 year and 1 month ago. History: Patient is postmenopausal, has history of high-risk lesion on a previous biopsy at age 41, and is nulliparous. High risk left mammotome panel of the left breast, March 23, 2007. Physical Findings: A clinical breast exam by your physician is recommended on an annual basis and results should be correlated with mammographic findings. MG Screening Mammo w CAD Bilateral CC and MLO view(s) were taken. Prior study comparison: May 13, 2017, bilateral MG screening mammo w CAD. May 13, 2016, bilateral MG screening mammo w CAD. There are scattered fibroglandular densities. There is no discrete abnormality. No significant changes when compared with prior studies. ASSESSMENT: Negative, BI-RAD 1 RECOMMENDATION: Routine screening mammogram of both breasts in 1 year.
== END | disposition home or self-care (01) ==
LOC: RADMAMWWP 11:15
PROVIDERS: ATTEND Family Medicine
DX: Z12.31 Encounter for screening mammogram for malignant neoplasm of breast (principal)
CPT/HCPCS: 77067

== ENCOUNTER → 2018-10-18 | Outpatient (CLI) | payer BC, OTHER ==
--- NOTE | 2018-10-18 14:17 | XR ---
Lumbar spine HISTORY: Paresthesias, low back pain 3 views of the lumbar spine, correlation prior lumbar spine 03/03/2012 There is a mild spinal curvature. Multilevel spondylosis. Lumbar vertebral bodies show preserved heig ht. There is anterolisthesis grade 1 L4-5. Sclerosis present in the posterior elements of the lower l umbar spine. Retrolisthesis grade 1 L2-3. Loss of disc height is present at the intervertebral levels . Bone mineralization is reduced. Surgical clips present right upper quadrant. IMPRESSION: Degenerative disc disease, facet arthropathy, osteopenia.
== END | disposition home or self-care (01) ==
LOC: RADXRYALE 12:03
PROVIDERS: ATTEND Family Medicine
DX: M51.36 Other intervertebral disc degeneration, lumbar region (principal); M46.96 Unspecified inflammatory spondylopathy, lumbar region; M85.88 Other specified disorders of bone density and structure, other site
CPT/HCPCS: 72100

== ENCOUNTER → 2018-11-01 | Outpatient (CLI) | payer BC, OTHER ==
--- NOTE | 2018-11-02 03:31 | MR ---
EXAMINATION TYPE: MR lumbar spine wo con DATE OF EXAM: 11/01/2018 COMPARISON: None HISTORY: 53-year-old female Low back pain/Spondylolisthesis TECHNIQUE: Multiplanar, multisequence images of the lumbar spine were acquired. FINDINGS: Vertebral body heights are preserved. Heterogeneous marrow signal. However, marrow signal remains brighter than the musculature and interve rtebral discs. Hypertrophic facet arthropathy especially in the mid to lower lumbar spine with grade 2 anterolisthes is at L4-L5. Trace grade 1 retrolisthesis at L2-L3 and L3-L4. Moderate degenerative disc disease throughout with desiccated, narrowed, and diffusely bulging discs. Ligamentum flavum thickening lower lumbar spine. Conus medullaris is normal. At T12-L1, mild disc bulge without canal or foraminal stenosis. At L1-L2, no canal or foraminal stenosis. At L2-L3, there is diffuse disc bulge with ligamentum flavum thickening and hypertrophic facet arthro makayla. Changes result in moderate spinal canal stenosis with moderate left neuroforaminal stenosis. At L3-L4, diffuse disc bulge with hypertrophic facet arthropathy and ligamentum flavum thickening. Ch anges result in mild overall narrowing of the spinal canal with mild to moderate right and mild left neural foraminal stenosis. At L4-L5, there is hypertrophic facet arthropathy with ligamentum flavum thickening, bulging disc, an d grade 2 anterolisthesis. The changes result in severe spinal canal stenosis with moderate right and mild left neuroforaminal stenosis. At L5-S1, hypertrophic facet arthropathy is present. No spinal canal stenosis. There is moderate to s evere left and moderate right neural foraminal stenosis. No prevertebral or paravertebral soft tissue abnormality seen. IMPRESSION: 1. Moderate multilevel degenerative disc disease. There is hypertrophic facet arthropathy with ligame ntum flavum thickening. 2. Changes result in grade 2 anterolisthesis at L4-L5 and trace grade 1 retrolistheses at L2-L3 and L 3-L4. 3. Overall severe spinal canal stenosis at L4-L5, moderate at L2-L3, and mild at L3-L4. 4. Variable neuroforaminal stenoses as outlined above, moderate to severe on the left at L5-S1. 5. Red marrow hyperplasia which can be seen in the setting of anemia, obesity, smoking, and chronic d isease.
== END ==
LOC: RADMRIMAIN 13:43
PROVIDERS: ATTEND Family Medicine
DX: M48.061 Spinal stenosis, lumbar region without neurogenic claudication (principal); M48.07 Spinal stenosis, lumbosacral region; M43.16 Spondylolisthesis, lumbar region; M51.36 Other intervertebral disc degeneration, lumbar region; M46.96 Unspecified inflammatory spondylopathy, lumbar region
CPT/HCPCS: 72148

== ENCOUNTER → 2018-12-22 | Outpatient (CLI) | payer BC, OTHER ==
--- NOTE | 2018-12-22 21:38 | CONS ---
CONSULTATION DATE OF SERVICE: 12/22/2018 This patient is a 53-year-old lady who has been [facility] for obstructive sleep apnea-hypopnea syndrome and significant excessive daytime sleepiness, even while she is using her CPAP equipment. HISTORY OF PRESENT ILLNESS/SLEEP-WAKE EVALUATION: The patient has a long history of obstructive sleep apnea for more than 15 years. She continues to use her CPAP equipment every night for the whole night. The patient's usual sleep schedule is from around 10 p.m. until 3 a.m. on working days, and on weekend from midnight until 11 a.m. or noon. Usually no problems with falling asleep. No TV in bedroom. The patient sleeps in different positions, including back, side and stomach. She sleeps by herself, so there is no clear information about her breathing during the night or about any snoring. She usually sleeps through and does not wake up from sleep. No history of hypnagogic hallucinations, sleep paralysis or cataplexy. During the day, the patient feels significantly sleepy, even when she sleeps for many hours. [place] Sleepiness Scale is in an extremely high range of 20. The patient may take naps 2 times a day, and she usually feels refreshed after naps. Sleepiness during the day includes sleepiness while driving the car. PAST MEDICAL HISTORY: 1. Depression. 2. Arthritis. 3. Acid reflux. 4. Diabetes. 5. Hyperlipidemia. 6. Back pain. MEDICATIONS: 1. Metformin. 2. Celexa. 3. Diclofenac. 4. Protonix. 5. Actos. 6. Lipitor. 7. Vitamin D3 supplement. 8. Fisher. PAST SURGICAL HISTORY: 1. Tonsillectomy. 2. Surgery for rotator cuff on the left and right side. 3. Cholecystectomy. 4. Hysterectomy. 5. Surgery for carpal tunnel syndrome bilaterally. SOCIAL HISTORY: Negative for smoking. Alcohol consumption very rare. FAMILY HISTORY: Sleep apnea, thyroid problems, diabetes, acid reflux, arthritis. REVIEW OF SYSTEMS: Sleepiness during the day, even if the patient sleeps for 9 hours at night while using her CPAP. I checked the patient's CPAP unit. CPAP pressure is 13 cm of water, usage 25/30 nights for more than 4 hours. Average usage is 5.48 hours per night. Zero percent leak. Apnea-hypopnea index reading from the machine only 1.8, which is within normal range. PHYSICAL EXAMINATION: GENERAL: A pleasant lady without distress. VITAL SIGNS: BP 146/67, HR 60, RR 16, height 5 feet 2 inches, weight 267 pounds, body mass index 48.8, temperature 97.9, oxygen saturation at room air 98%. HEENT: PERRLA, EOMI. Evaluation of oropharynx showed tongue protrudes midline. Extremely low position of soft palate. Mallampati IV. NECK: Supple. No JVD. Thyroid is not palpable. Neck measures 15-1/2 inches in circumference. LUNGS: Clear to percussion and to auscultation. Good air exchange. No wheezing or rhonchi. HEART: S1, S2 regular. No murmurs, gallops or rubs. ABDOMEN: Obese. EXTREMITIES: No clubbing or cyanosis. MECHANICAL ENGINEERING LECTURER: Awake, alert, and oriented X3. Cranial nerves 2 to 7 intact. There is no fasciculation or atrophy. noted. No focal deficits observed. IMPRESSION: 1. Obstructive sleep apnea-hypopnea syndrome for more than 15 years. The patient demonstrated great compliance with treatment. Normal respiration by reading apnea- hypopnea index from her CPAP unit. 2. The patient continues to have symptoms of significant excessive daytime sleepiness, even while she is using again her CPAP equipment every night. [place] Sleepiness Scale is in extremely high range of 20. The patient feels sleepy while driving the car, also. Differential diagnosis should include idiopathic hypersomnia and narcolepsy without cataplexy. 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 4. Obesity; body mass index 48.8. 5. History of depression. 6. History of polyarthritis. 7. Acid reflux. 8. Diabetes mellitus. 9. Hyperlipidemia. 10.Back problems with back pain, on treatment with Fisher. PLAN: 1. Night on CPAP with adjustments of CPAP pressure if necessary with a following multiple sleep latency test for objective evaluation of patient's symptoms of significant excessive daytime sleepiness and to check for any sleep-onset REM periods for possibility of narcolepsy. 2. The patient will continue to use her CPAP equipment every night for the whole night. 3. We will maintain all necessary CPAP prescriptions, including mask, tube, filters. 4. Losing weight. 5. Sleep hygiene with regular time in bed for at least 8 hours. 6. Precautions related to driving. No driving if feeling any sleepiness. Thank you very much for referring this patient for re-evaluation. Sincerely, Antonoi Coleman MD, PhD, FAASM Diplomat of [employer] Keyboard Operator of [facility] [place] MMODL / HIRAMN: [id number] /
== END ==
LOC: SLEEP 15:23
PROVIDERS: ATTEND Internal Medicine
DX: G47.33 Obstructive sleep apnea (adult) (pediatric) (principal); E66.9 Obesity, unspecified; F32.9 Major depressive disorder, single episode, unspecified; K21.9 Gastro-esophageal reflux disease without esophagitis; E11.9 Type 2 diabetes mellitus without complications; E78.5 Hyperlipidemia, unspecified; M54.9 Dorsalgia, unspecified; M13.0 Polyarthritis, unspecified; Z68.42 Body mass index [BMI] 45.0-49.9, adult; Z99.89 Dependence on other enabling machines and devices; Z79.891 Long term (current) use of opiate analgesic; Z79.84 Long term (current) use of oral hypoglycemic drugs
CPT/HCPCS: 99211

== ENCOUNTER → 2019-01-04 | Outpatient (CLI) | payer BC, OTHER ==
--- NOTE | 2019-01-04 14:48 | XR ---
Limited cervical spine HISTORY: Neck pain 3 views of the cervical spine . multilevel facet arthropathy. Possible apical scarring vascular calcifications are noted. Anterolis thesis grade 1 C3-4, C4-5, and C6-7, retrolisthesis grade 1 C5-6. Loss of disc height present at C5-6 with associated spondylosis. Vertebral soft tissues are within normal limits. Cervical vertebral bod ies show preserved height, bone mineralization. IMPRESSION: Degenerative disc disease and facet arthropathy. Additional findings above.
== END ==
LOC: RADXRYALE 11:54
PROVIDERS: ATTEND Family Medicine
DX: M50.322 Other cervical disc degeneration at C5-C6 level (principal); M47.812 Spondylosis without myelopathy or radiculopathy, cervical region; M46.92 Unspecified inflammatory spondylopathy, cervical region
CPT/HCPCS: 72040

== ENCOUNTER → 2019-08-15 | Outpatient (CLI) | payer BC, OTHER ==
--- NOTE | 2019-08-15 16:24 | XR ---
Right clavicle HISTORY: Trauma and pain 2 views of the right clavicle Postop changes are noted in the proximal right humerus, suture anchors are present likely post rotato r cuff repair. Acromioclavicular joint shows arthropathy, hypertrophic change. Right lung apex as vis ualized is normal. Heart may be enlarged. Facet arthropathy in the cervical spine. IMPRESSION: No acute fracture or dislocation. Postop changes. Possible cardiomegaly.
--- NOTE | 2019-08-15 16:26 | XR ---
Cervical spine HISTORY: Trauma and pain 5 views of the cervical spine Correlation to prior exam 01/04/2019 Multilevel facet arthropathy changes are present. Cervical vertebral bodies show preserved height. Sp ondylosis is greatest at C5-6 with associated loss of disc height. Minimal anterolisthesis grade 1 C6 -7, C4-5, C3-4 and C2-3. Retrolisthesis grade 1 C5-6. Prevertebral soft tissues are normal. Foraminal encroachment is noted at C5-6 bilaterally. IMPRESSION: Degenerative disc disease and facet arthropathy. No acute fracture or subluxation. Consid er cervical MRI or CT for better evaluation as indicated.
== END | disposition home or self-care (01) ==
LOC: RADXRYALE 15:58
PROVIDERS: ATTEND Family Medicine
DX: M25.511 Pain in right shoulder (principal); Z98.890 Other specified postprocedural states; M50.30 Other cervical disc degeneration, unspecified cervical region; M46.92 Unspecified inflammatory spondylopathy, cervical region
CPT/HCPCS: 72050

== ENCOUNTER → 2019-10-13 | Outpatient (CLI) | payer BC, OTHER ==
--- NOTE | 2019-10-13 19:27 | MR ---
EXAMINATION TYPE: MR brain wo/w con DATE OF EXAM: 10/13/2019 COMPARISON: None HISTORY: Ataxic gait, dizziness, headache TECHNIQUE: Multiplanar, multisequence images of the brain and brainstem is performed without and with IV contras t, utilizing 11.5 mL intravenous Gadavist . FINDINGS: Diffusion weighted images demonstrate no evidence of a recent infarct or other diffusion ab normality. There is no extra-axial fluid collection or significant white matter signal abnormality. The ventricular system and cisternal spaces are normal in size and appearance. The brain volume is a ge appropriate. Midline structures demonstrate normal morphology. The craniocervical junction appears within normal limits. Post contrast images demonstrate no abnormal enhancement. The dural venous sinuses appear pa tent. Changes of chronic sinusitis and the globes are intact. IMPRESSION:
== END | disposition home or self-care (01) ==
LOC: RADMRIMAIN 16:54
PROVIDERS: ATTEND Family Medicine
DX: R42 Dizziness and giddiness (principal); R26.0 Ataxic gait
CPT/HCPCS: 70553; A9585

== ENCOUNTER 2020-04-14 05:37 | Emergency (ER) | payer BC, OTHER ==
[2020-04-14 05:42] VITALS: BP 160/83; PULSE 65; RESP 20; TEMP 97.7
[2020-04-14] MEDS ORDERED: methylPREDNISolone SOD SUCCI 125 MG/2 ML VIAL IM ONE (06:13)
[2020-04-14] MEDS ORDERED: diphenhydrAMINE 50 MG CAP PO STA (06:13)
--- NOTE | 2020-04-14 06:26 | ED ---
Allergic Reaction HPI - General Chief complaint: Allergic Reaction Stated complaint: Allergic Reaction Time Seen by Provider: 04/14/20 06:03 Source: patient Mode of arrival: ambulatory Limitations: no limitations - History of Present Illness Initial Comments: Patient is a 54-year-old female presenting to the emergency Department with complaints of a possible reaction to some wax at work. Patient states she went to work approximately 3 hours prior to arrival and they were waxing floors and she believes the fans were blowing the fumes into her office. Patient states over the past hour she's been having watering eyes and feels like her face is somewhat tingly and dry. She is also having a dry mouth. She denies any trouble breathing, shortness of breath, or chest pains. She denies any new medications in the past week, but did admit to an increase in her norco yesterday. She takes this for chronic back pain. She denies any fever, chills. She denies any known ALLERGIES. She's never had this reaction before. She did not take anything prior to arrival. She has no further complaints at this time. - Related Data Home Medications Medication Instructions Recorded Confirmed Citalopram Hydrobromide [CeleXA] 20 mg PO W/SUPPER 09/09/14 12/09/17 Diclofenac Potassium [Cataflam] 50 mg PO BID 09/09/14 12/09/17 Multivitamins, Thera [Multivitamin] 1 tab PO DAILY 09/09/14 12/09/17 HYDROcodone/APAP 7.5-325MG [[place] 1 tab PO Q6HR 10/21/16 12/09/17 7.5-325] metFORMIN HCL [Glucophage] 1,000 mg PO BID 05/24/17 12/09/17 Cholecalciferol [Vitamin D3] 2,000 unit PO DAILY 07/27/17 12/09/17 Pioglitazone HCl [Actos] 30 mg PO W/SUPPER 07/27/17 12/09/17 Atorvastatin [Lipitor] 40 mg PO W/SUPPER 07/28/17 12/09/17 Pantoprazole Sodium [Protonix] 40 mg PO DAILY 07/28/17 12/09/17 lisinopriL [Zestril] 2.5 mg PO W/SUPPER 07/28/17 12/09/17 Allergies Allergy/AdvReac Type Severity Reaction Status Date / Time No Known Allergies Allergy Verified 04/14/20 05:42 Review of Systems ROS Statement: Those systems with pertinent positive or pertinent negative responses have been documented in the HPI. ROS Other: All systems not noted in ROS Statement are negative. Past Medical History Past Medical History: Diabetes Mellitus, GERD/Reflux, Osteoarthritis (OA), Sleep Apnea/CPAP/BIPAP Additional Past Medical History / Comment(s): KIDNEY STONES, hx. of ulcer, constipation/diarrhea, History of Any Multi-Drug Resistant Organisms: MRSA Date of last positivie culture/infection: 2002 MDRO Source:: abdomen Past Surgical History: Adenoidectomy, Cholecystectomy, Hysterectomy, Orthopedic Surgery, Tonsillectomy Additional Past Surgical History / Comment(s): bilateral carpal tunnel release , right shoulder rotator cuff, eye surgery for strabismus, salivary gland/stone and cyst, abdominal surgery to remove MRSA Past Anesthesia/Blood Transfusion Reactions: No Reported Reaction Past Psychological History: Depression Smoking Status: Former smoker Past Alcohol Use History: None Reported Past Drug Use History: None Reported - Past Family History Sister(s) Family Medical History: Cancer Additional Family Medical History / Comment(s): ovarian General Exam - General Exam Comments Initial Comments: GENERAL: Patient is well-developed and well-nourished. Patient is nontoxic and in no acute distress. HEAD: Atraumatic, normocephalic. EYES: Pupils equal round and reactive to light, extraocular movements intact, sclera anicteric, conjunctiva are normal. Eyelids were unremarkable. ENT: TMs normal, nares patent, oropharynx clear without exudates. Moist mucous membranes. NECK: Normal range of motion, supple without lymphadenopathy or JVD. LUNGS: Unlabored respirations. Breath sounds clear to auscultation bilaterally and equal. No wheezes rales or rhonchi. HEART: Regular rate and rhythm without murmurs, rubs or gallops. ABDOMEN: Soft, nontender, normoactive bowel sounds. No guarding, no rebound. No masses appreciated. : Deferred MUSCULOSKELETAL: Normal extremities with adequate strength and normal range of motion, no pitting or edema. No clubbing or cyanosis. NEUROLOGICAL: Patient is alert and oriented x 3. Motor and sensory are also intact. Cranial nerves II through XII grossly intact. Symmetrical smile. Normal speech, normal gait. PSYCH: Normal mood, normal affect. SKIN: Warm, Dry, normal turgor, no rashes or lesions noted. Limitations: no limitations Course Vital Signs 04/14/20 05:38 Temperature 97.7 F Pulse Rate 65 Respiratory 20 Rate Blood Pressure 160/83 O2 Sat by Pulse 100 Oximetry Medical Decision Making - Medical Decision Making Patient is a 54-year-old female here for possible ALLERGIC reaction to some wax at work. Her vitals are stable. Her exam is unremarkable. Patient has no shortness of breath, no chest pains. She was given Benadryl to take home with her as well as a shot of solu-Medrol. Patient is stable for discharge. Patient is in agreement with plan and care. Return parameters were discussed with the patient she verbalized understanding. Disposition Clinical Impression: Watery eyes Disposition: HOME SELF-CARE Condition: Stable Instructions (If sedation given, give patient instructions): Allergic Rhinitis (ED) Additional Instructions: Please return to the Emergency Department if symptoms worsen or any other concerns. Take Benadryl when you get home. May repeat Benadryl dose and 6-8 hours if sy mptoms persist. Follow-up with PCP as needed. Is patient prescribed a controlled substance at d/c from ED?: No Referrals: Jordin Whitley DO [Primary Care Provider] - 1-2 days
== END 2020-04-14 06:31 | disposition home or self-care (01) ==
LOC: EC 05:37
DX: H04.209 Unspecified epiphora, unspecified side (principal); G47.30 Sleep apnea, unspecified; G89.29 Other chronic pain; M54.9 Dorsalgia, unspecified; F32.9 Major depressive disorder, single episode, unspecified; M19.90 Unspecified osteoarthritis, unspecified site; E11.9 Type 2 diabetes mellitus without complications; K21.9 Gastro-esophageal reflux disease without esophagitis; Z79.84 Long term (current) use of oral hypoglycemic drugs; Z79.1 Long term (current) use of non-steroidal anti-inflammatories (NSAID); Z79.899 Other long term (current) drug therapy; Z99.89 Dependence on other enabling machines and devices; Z87.891 Personal history of nicotine dependence; Z87.442 Personal history of urinary calculi
CPT/HCPCS: 99283; 96372; J2930

== ENCOUNTER → 2020-05-07 | Outpatient (CLI) | payer BC, OTHER ==
[2020-05-07 18:03] LABS: African American GFR (CKD) >90 (>60 ml/min/1.73 sqM); Blood Urea Nitrogen 14 mg/dL (7-17); Non-African American GFR(CKD) >90 (>60 ml/min/1.73 sqM)
--- NOTE | 2020-05-07 19:45 | CT ---
EXAMINATION TYPE: CT abdomen pelvis w con DATE OF EXAM: 05/07/2020 HISTORY: RLQ pain CT DLP: 1982.5mGycm Automated Exposure Control for Dose Reduction was Utilized. CONTRAST: CT scan of the abdomen and pelvis is performed with oral and with IV Contrast, patient injected with 100 mL of Isovue 300. COMPARISON: CT abdomen and pelvis July 02, 2012 FINDINGS: LUNG BASES: No significant abnormality is appreciated. LIVER/GB: Cholecystectomy clips are redemonstrated. PANCREAS: [id number] generalized fat replaced atrophy again seen. SPLEEN: No significant abnormality is seen. ADRENALS: No significant abnormality is seen. KIDNEYS: The left kidney remains asymmetrically enlarged versus opposite right kidney. There is dupli cated upper and lower pole collecting system and at least proximal ureters on the left redemonstrated . There is symmetric cortical medullary uptake and excretion without hydronephrosis seen bilaterally. No intraluminal calculus in the poorly distended bladder. BOWEL: Oral contrast has not reached the level of the terminal ileum making evaluation of distal ana l suboptimal. No suspicious small or large bowel dilatation. Appendix not seen presumed surgically ab sent not identified on prior study. No suspicious inflammatory change at base of cecum. Eqfl-ue-hnzry ate fecal prominence in the right and transverse colon. UTERUS/ADNEXA: Uterus surgically absent. Surgical clips pelvis redemonstrated. Occasional tiny pelvic phlebolith redemonstrated. LYMPH NODES: No greater than 1cm abdominal or pelvic lymph nodes are appreciated. OSSEOUS STRUCTURES: Moderate multilevel disc space narrowing and vacuum disc phenomenon L2-L3 through L5-S1 levels. Grade 1 retrolisthesis L2 on L3. Grade 1 anterolisthesis L4 on L5. Facet arthropathy l ower lumbar levels. Additional moderate multilevel spurring in visualized spine. Moderate superior demi int space loss both hips. OTHER: No significant additional abnormality is seen. IMPRESSION: Mild to moderate proximal colonic fecal stasis. No bowel obstruction. No new or acute fin dings identified.
== END | disposition home or self-care (01) ==
LOC: RADCTMAIN 17:24
PROVIDERS: ATTEND Physician Assistant
DX: R10.31 Right lower quadrant pain (principal)
CPT/HCPCS: 82565; 84520; 74177; 36415; Q9967

== ENCOUNTER 2021-02-20 17:41 | Emergency (ER) | payer BC, OTHER ==
[2021-02-20 17:48] VITALS: PULSE 64; TEMP 98
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
[2021-02-20 19:50] VITALS: BP 124/72; RESP 16
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
== END 2021-02-20 20:00 | disposition home or self-care (01) ==
LOC: EC 17:41
DX: S62.644A Nondisplaced fracture of proximal phalanx of right ring finger, initial encounter for closed fracture (principal); E11.9 Type 2 diabetes mellitus without complications; M19.90 Unspecified osteoarthritis, unspecified site; K21.9 Gastro-esophageal reflux disease without esophagitis; Z79.84 Long term (current) use of oral hypoglycemic drugs; Z87.891 Personal history of nicotine dependence; Z79.1 Long term (current) use of non-steroidal anti-inflammatories (NSAID); Z79.899 Other long term (current) drug therapy; V48.5XXA Car driver injured in noncollision transport accident in traffic accident, initial encounter; Y92.410 Unspecified street and highway as the place of occurrence of the external cause
CPT/HCPCS: 99283

== ENCOUNTER → 2021-06-05 | Outpatient (CLI) | payer BC, OTHER ==
--- NOTE | 2021-06-06 15:09 | MM ---
Reason for exam: screening (asymptomatic). Last mammogram was performed 1 year and 2 months ago. History: Patient is postmenopausal, has history of high-risk lesion on a previous biopsy at age 41, and is nulliparous. High risk left mammotome panel of the left breast, March 23, 2007. Physical Findings: A clinical breast exam by your physician is recommended on an annual basis and results should be correlated with mammographic findings. MG Screening Mammo w CAD Bilateral CC and MLO view(s) were taken. Prior study comparison: March 27, 2020, bilateral MG screening mammo w CAD. June 27, 2018, bilateral MG screening mammo w CAD. Benign appearing bilateral calcifications. No significant changes when compared with prior studies. ASSESSMENT: Benign, BI-RAD 2 RECOMMENDATION: Routine screening mammogram of both breasts in 1 year.
== END | disposition home or self-care (01) ==
LOC: RADMAMWWP 09:41
PROVIDERS: ATTEND Family Medicine
DX: Z12.31 Encounter for screening mammogram for malignant neoplasm of breast (principal)
CPT/HCPCS: 77067

== ENCOUNTER → 2021-12-05 | Outpatient (CLI) | payer BC, OTHER ==
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
== END | disposition home or self-care (01) ==
LOC: RADXRYALE 14:57
PROVIDERS: ATTEND Family Medicine
DX: S69.91XA Unspecified injury of right wrist, hand and finger(s), initial encounter (principal); M25.531 Pain in right wrist; X58.XXXA Exposure to other specified factors, initial encounter

== ENCOUNTER → 2022-02-26 | Outpatient (CLI) | payer BC, OTHER ==
--- NOTE | 2022-02-27 09:24 | XR ---
Cervical spine HISTORY: Cervicalgia 5 views of the cervical spine correlated prior exam 08/15/2019 There is no significant interval change. There is multilevel spondylosis. Anterolisthesis grade 1 C4- 5, C3-4. Loss of disc height is greatest at C5-6 and C6-7. Facet arthropathy changes are present. Pre vertebral soft tissues are normal. Cervical vertebral bodies show preserved height and bone mineraliz ation. On foraminal encroachment is present on the right at C3-4, C5-6 and on the left that C5-6. IMPRESSION: Degenerative disease, neural foraminal encroachment, facet arthropathy similar to prior e xam.
== END | disposition home or self-care (01) ==
LOC: RADXRYALE 15:10
PROVIDERS: ATTEND Family Medicine
DX: M50.30 Other cervical disc degeneration, unspecified cervical region (principal); M47.892 Other spondylosis, cervical region
CPT/HCPCS: 72050

== ENCOUNTER → 2022-04-09 | Outpatient (CLI) | payer BC, OTHER ==
--- NOTE | 2022-04-09 10:56 | CA ---
Transthoracic Echo Report Name: Maren Gastelum Age: 56 Gender: F : 1965 Exam Date: 04/09/2022 08:45 Exam Location: [facility] Ht (in): 62 Wt (lb): 253 Ordering Physician: Jordin Whitley DO Attending/Referring Phys: Obstetrics Nurse Eli Murry RDCS Procedure CPT: Indications: R011 cardiac murmur Cardiac Hx: Technical Quality: Good Contrast 1: Total Dose (mL): Contrast 2: Total Dose (mL): MEASUREMENTS (Male / Female) Normal Values 2D ECHO LV Diastolic Diameter PLAX 4.1 cm 4.2 - 5.9 / 3.9 - 5.3 cm LV Systolic Diameter PLAX 2.7 cm IVS Diastolic Thickness 1.0 cm 0.6 - 1.0 / 0.6 - 0.9 cm LVPW Diastolic Thickness 1.2 cm 0.6 - 1.0 / 0.6 - 0.9 cm LV Relative Wall Thickness 0.5 RV Internal Dim ED PLAX 3.1 cm LV Diastolic Volume MOD BP 114.3 cm??? 67 - 155 / 56 - 104 cm??? LV Systolic Volume MOD BP 32.5 cm??? 22 - 58 / 19 - 49 cm??? LV Ejection Fraction MOD BP 71.5 % >= 55 % LV Diastolic Volume MOD 4C 105.6 cm??? LV Systolic Volume MOD 4C 36.9 cm??? LV Ejection Fraction MOD 4C 65.0 % LV Diastolic Length 4C 8.6 cm LV Systolic Length 4C 6.3 cm LV Diastolic Volume MOD 2C 98.5 cm??? LV Systolic Volume MOD 2C 27.9 cm??? LV Ejection Fraction MOD 2C 71.7 % LV Diastolic Length 2C 6.8 cm LV Systolic Length 2C 6.1 cm LA Volume 59.4 cm??? 18 - 58 / 22 - 52 cm??? M-MODE Aortic Root Diameter MM 3.0 cm LA Systolic Diameter MM 3.0 cm LA Ao Ratio MM 1.0 MV E Point Septal Separation 0.8 cm AV Cusp Separation MM 1.8 cm DOPPLER AV Peak Velocity 169.2 cm/s AV Peak Gradient 11.4 mmHg MV Area PHT 4.3 cm??? MR Peak Velocity 474.2 cm/s MR Peak Gradient 89.9 mmHg Mitral E Point Velocity 101.1 cm/s Mitral A Point Velocity 68.3 cm/s Mitral E to A Ratio 1.5 MV Deceleration Time 177.3 ms MV E' Velocity 11.4 cm/s Mitral E to MV E' Ratio 8.9 TR Peak Velocity 283.4 cm/s TR Peak Gradient 32.1 mmHg Right Ventricular Systolic Press 35.9 mmHg FINDINGS Left Ventricle Mildly increased septal wall thickness. Mildly increased posterior wall thickness. Mildly increased left ventricular diastolic volume. Grade 1 diastolic dysfunction. Left ventricular ejection fraction is estimated at 55-60 %. Right Ventricle The right ventricle is normal in size and function. Mild pulmonary hypertension. Right Atrium The right atrium is normal in size. Left Atrium Mildly increased left atrial volume. Mitral Valve Structurally normal mitral valve without significant stenosis or prolapse. There is mild mitral regurgitation. Aortic Valve Structurally normal aortic valve without significant sclerosis or stenosis. There is no aortic regurgitation. Tricuspid Valve Structurally normal tricuspid valve without significant stenosis. Mild tricuspid regurgitation. Pulmonic Valve Structurally normal pulmonic valve without significant stenosis. There is no pulmonic regurgitation. Pericardium Normal pericardium without effusion. Aorta Normal aortic root dimension. CONCLUSIONS Normal LV size and systolic function with mild concentric LVH. Mild mitral and tricuspid insufficiency. No significant pulmonary hypertension and no pericardial effusion Previewed by: Dr. Jennifer Mays MD (Electronically Signed) Final Date: 09 April 2022 10:55
== END | disposition home or self-care (01) ==
LOC: RADECHMAIN 08:33
PROVIDERS: ATTEND Family Medicine
DX: R01.1 Cardiac murmur, unspecified (principal)
CPT/HCPCS: 93306

== ENCOUNTER → 2022-04-09 | Outpatient (CLI) | payer BC, OTHER ==
--- NOTE | 2022-04-09 19:39 | XR ---
Right foot HISTORY: Pain, trauma to first digit 3 views of the right foot There is a plantar calcaneal spur. Arthropathy is present at the tarsometatarsal joints, metatarsopha langeal joint of the first digit. Soft tissue swelling is noted. Bone mineralization is reduced. Alig nment is maintained. IMPRESSION: No acute fracture or dislocation is evident.
== END | disposition home or self-care (01) ==
LOC: RADXRYALE 13:49
PROVIDERS: ATTEND Physician Assistant
DX: M79.671 Pain in right foot (principal)

== ENCOUNTER 2022-08-31 07:19 | Emergency (ER) | payer BC, OTHER ==
[2022-08-31] MEDS ORDERED: KETOROLAC 15 MG/ML 1 ML VIAL IM STA (07:43)
--- NOTE | 2022-08-31 07:48 | ED ---
General Adult HPI - General Chief complaint: Fall Stated complaint: fall 2 days ago Time Seen by Provider: 08/31/22 07:31 Source: patient, RN notes reviewed Mode of arrival: ambulatory Limitations: no limitations - History of Present Illness Initial comments: Patient is a pleasant 57-year-old female presenting to the emergency department with concern for discomfort following a fall. Incident occurred 2 days ago and the second one yesterday. Patient tripped on both occasions. Patient does complain of right knee pain. Patient is able to ambulate. Patient also complains of lower back pain. No incontinence or retention of bowel or bladder. No weakness. No head injury or loss of consciousness. - Related Data Home Medications Medication Instructions Recorded Confirmed Citalopram Hydrobromide [CeleXA] 20 mg PO W/SUPPER 09/09/14 12/09/17 Diclofenac Potassium [Cataflam] 50 mg PO BID 09/09/14 12/09/17 Multivitamins, Thera [Multivitamin] 1 tab PO DAILY 09/09/14 12/09/17 HYDROcodone/APAP 7.5-325MG [[place] 1 tab PO Q6HR 10/21/16 12/09/17 7.5-325] metFORMIN HCL [Glucophage] 1,000 mg PO BID 05/24/17 12/09/17 Cholecalciferol [Vitamin D3] 2,000 unit PO DAILY 07/27/17 12/09/17 Pioglitazone HCl [Actos] 30 mg PO W/SUPPER 07/27/17 12/09/17 Atorvastatin [Lipitor] 40 mg PO W/SUPPER 07/28/17 12/09/17 Pantoprazole Sodium [Protonix] 40 mg PO DAILY 07/28/17 12/09/17 lisinopriL [Zestril] 2.5 mg PO W/SUPPER 07/28/17 12/09/17 Previous Rx's Medication Instructions Recorded HYDROcodone/APAP 5-325MG [[place] 5] 1 each PO Q6HR PRN #12 tab 02/20/21 Allergies Allergy/AdvReac Type Severity Reaction Status Date / Time No Known Allergies Allergy Verified 08/31/22 07:26 Review of Systems ROS Statement: Those systems with pertinent positive or pertinent negative responses have been documented in the HPI. ROS Other: All systems not noted in ROS Statement are negative. Constitutional: Denies: fever Eyes: Denies: eye pain ENT: Denies: ear pain Respiratory: Denies: cough Cardiovascular: Denies: chest pain Endocrine: Denies: fatigue Gastrointestinal: Denies: nausea Genitourinary: Denies: dysuria Musculoskeletal: Reports: as per HPI, back pain Past Medical History Past Medical History: Diabetes Mellitus, GERD/Reflux, Osteoarthritis (OA), Sleep Apnea/CPAP/BIPAP Additional Past Medical History / Comment(s): KIDNEY STONES, hx. of ulcer, constipation/diarrhea, History of Any Multi-Drug Resistant Organisms: MRSA Date of last positivie culture/infection: 2002 MDRO Source:: abdomen Past Surgical History: Adenoidectomy, Cholecystectomy, Hysterectomy, Orthopedic Surgery, Tonsillectomy Additional Past Surgical History / Comment(s): bilateral carpal tunnel release , right shoulder rotator cuff, eye surgery for strabismus, salivary gland/stone and cyst, abdominal surgery to remove MRSA, Cataract kayley eyes Past Anesthesia/Blood Transfusion Reactions: No Reported Reaction Past Psychological History: Depression Smoking Status: Former smoker Past Alcohol Use History: None Reported Past Drug Use History: None Reported - Past Family History Sister(s) Family Medical History: Cancer Additional Family Medical History / Comment(s): ovarian General Exam Limitations: no limitations General appearance: alert, in no apparent distress Head exam: Present: atraumatic, normocephalic Eye exam: Present: normal appearance Neck exam: Present: normal inspection. Absent: tenderness Respiratory exam: Present: normal lung sounds bilaterally Cardiovascular Exam: Present: regular rate, normal rhythm GI/Abdominal exam: Present: soft. Absent: tenderness Extremities exam: Present: tenderness (Right anterior knee) Neurological exam: Present: alert Psychiatric exam: Present: normal affect, normal mood Skin exam: Present: normal color Course Vital Signs 08/31/22 07:22 Temperature 98.5 F Pulse Rate 63 Respiratory 20 Rate Blood Pressure 129/57 O2 Sat by Pulse 96 Oximetry Medical Decision Making - Medical Decision Making Was pt. sent in by a medical professional or institution (Dr. PA, [facility], urgent care, hospital, or [facility]...) When possible be specific @ -Patient was sent from work Did you speak to anyone other than the patient for history (EMS, parent, family, police, friend...)? What history was obtained from this source @ -No Did you review nursing and triage notes (agree or disagree)? Why? @ -I reviewed and agree with nursing and triage notes Were old charts reviewed (outside hosp., previous admission, EMS record, old EKG, old radiological studies, urgent care reports/EKG's, [facility] records)? Report findings @ -No old charts were reviewed Differential Diagnosis (chest pain, altered mental status, abdominal pain women, abdominal pain men, vaginal bleeding, weakness, fever, dyspnea, syncope, headache, dizziness, GI bleed, back pain, seizure, CVA, palpatations, mental health)? @ -Differential Back Pain: Strain, zoster, cauda equina syndrome, epidural abscess, vertebral osteomyelitis, discitis, fracture, subluxation, disc herniation, DJD, spinal stenosis, dissection, AAA, pancreatitis, peptic ulcer disease, pyelonephritis, kidney stone, this is not meant to be an all-inclusive list. EKG interpreted by me (3pts min.). @ -As above X-rays interpreted by me (1pt min.). @ -Lumbar x-ray shows degenerative changes. Sacral x-ray shows questionable coccyx fracture. Right knee x-ray reveals no acute process CT interpreted by me (1pt min.). @ -None done U/S interpreted by me (1pt. min.). @ -None done What testing was considered but not performed or refused? (CT, X-rays, U/S, labs)? Why? @ -None What meds were considered but not given or refused? Why? @ -None Did you discuss the management of the patient with other professionals (professionals i.e. , PA, [facility], lab, RT, psych nurse, social services coordinator, preservationist, teacher, county health officer, manager of case management)? Give summary @ -No Was smoking cessation discussed for >3mins.? @ -No Was critical care preformed (if so, how long)? @ -No Were there social determinants of health that impacted care today? How? (Homelessness, low income, unemployed, alcoholism, drug addiction, transportation, low edu. Level, literacy, decrease access to med. care, prison, rehab)? @ -No Was there de-escalation of care discussed even if they declined (Discuss DNR or withdrawal of care, Hospice)? DNR status @ -No What co-morbidities impacted this encounter? (DM, HTN, Smoking, COPD, CAD, Cancer, CVA, ARF, Chemo, Hep., AIDS, mental health diagnosis, sleep apnea, morbid obesity)? @ -None Was patient admitted / discharged? Hospital course, mention meds given and route, prescriptions, significant lab abnormalities, going to OR and other pertinent info. @ -Patient reevaluated and updated. Patient will be discharged with follow-up with [facility] health services. IHS form completed. Undiagnosed new problem with uncertain prognosis? @ -No Drug Therapy requiring intensive monitoring for toxicity (Heparin, Nitro, Insulin, Cardizem)? @ -No Were any procedures done? @ -No Diagnosis/symptom? @ -Fall, coccyx fracture Acute, or Chronic, or Acute on Chronic? @ -Acute, acute Uncomplicated (without systemic symptoms) or Complicated (systemic symptoms)? @ -default Side effects of treatment? @ -No Exacerbation, Progression, or Severe Exacerbation? @ -No Poses a threat to life or bodily function? How? (Chest pain, [place], [place], pneumonia, PE, COPD, DKA, ARF, appy, cholecystitis, CVA, Diverticulitis, Homicidal, Suicidal, threat to staff... and all critical care pts) @ -No Disposition Clinical Impression: Fall, Fractured coccyx Disposition: HOME SELF-CARE Condition: Stable Instructions (If sedation given, give patient instructions): Coccyx Injury (ED) Additional Instructions: Use inflatable doughnut to sit on as needed. Ice to affected area. Return for weakness, loss of control of bowel or bladder, worsening or change in symptoms or any other concerns. Please do follow-up with [facility] health services within the next day for follow-up and further recommendations. Is patient prescribed a controlled substance at d/c from ED?: No Referrals: Jordin Whitley DO [Primary Care Provider] - 1-2 days Time of Disposition: 09:04
--- NOTE | 2022-08-31 08:18 | XR ---
EXAMINATION TYPE: XR knee complete RT DATE OF EXAM: 08/31/2022 COMPARISON: NONE HISTORY: Pain TECHNIQUE: Three views are submitted. FINDINGS: Narrowing of the patellofemoral and medial compartment joint space diffuse osteopenia. Osseous struc tures are intact. No acute fracture seen. IMPRESSION: 1. No acute fracture or dislocation. 2. Mild osteoarthritis
--- NOTE | 2022-08-31 08:21 | XR ---
EXAM TYPE: LUMBAR SPINE X RAY SERIES COMPARISON: NONE HISTORY: Pain TECHNIQUE: 3 views are submitted. FINDINGS: Alignment is anatomic. The pedicles are intact. The transverse processes are intact. There is grad e 1 anterior listhesis of L4 and L5. Multilevel moderate to severe degenerative disc disease. Multile alayna facet arthropathy. Hypertrophic spurring noted. Surgical clips in the gallbladder fossa. IMPRESSION: 1. Multilevel moderate to severe degenerative disc disease with grade 1 anterior listhesis of L4 on L 5. Suspect multilevel foraminal encroachment..
--- NOTE | 2022-08-31 08:22 | XR ---
EXAMINATION TYPE: XR sacrum coccyx DATE OF EXAM: 08/31/2022 COMPARISON: NONE HISTORY: Pain Three views are submitted. Sacrum is intact. SI joints are symmetric. Degenerative changes lower lumbar spine. Surgical clips in the pelvis. Calcifications like on the lateral view there is a sligh t cortical step-off involving the first coccygeal segment. IMPRESSION: 1. Question hairline minimally displaced fracture of first coccygeal segment correlate with point ten derness..
[2022-08-31 09:16] VITALS: BP 127/61; PULSE 64; RESP 18; TEMP 98.3
== END 2022-08-31 09:20 | disposition home or self-care (01) ==
LOC: EC 07:19
DX: S32.2XXA Fracture of coccyx, initial encounter for closed fracture (principal); M43.16 Spondylolisthesis, lumbar region; M17.11 Unilateral primary osteoarthritis, right knee; M47.816 Spondylosis without myelopathy or radiculopathy, lumbar region; M51.36 Other intervertebral disc degeneration, lumbar region; E11.9 Type 2 diabetes mellitus without complications; K21.9 Gastro-esophageal reflux disease without esophagitis; M19.90 Unspecified osteoarthritis, unspecified site; G47.30 Sleep apnea, unspecified; F32.A Depression, unspecified; Z87.891 Personal history of nicotine dependence; Z79.84 Long term (current) use of oral hypoglycemic drugs; Z79.1 Long term (current) use of non-steroidal anti-inflammatories (NSAID); Z79.899 Other long term (current) drug therapy; Z90.49 Acquired absence of other specified parts of digestive tract; W01.0XXA Fall on same level from slipping, tripping and stumbling without subsequent striking against object, initial encounter
CPT/HCPCS: 72100; 72220; 73562; 99284; 96372; J1885

== ENCOUNTER → 2023-01-07 | Outpatient (CLI) | payer BC, OTHER ==
--- NOTE | 2023-01-08 18:26 | MM ---
Reason for Exam: Screening (asymptomatic). Last mammogram was performed 1 year(s) and 7 month(s) ago. Patient History: Menarche at age 10. Patient has no children. Left ovary removed at age 42. Right ovary removed at age 42. Hysterectomy at age 42. Postmenopausal. Previous Atypical Lobular Hyperplasia at age 41. 03/23/2007, High risk Core Biopsy on the left side. Risk Values: Adrienne 5 year model risk: 3.7%. NCI Lifetime model risk: 20.1%. Prior Study Comparison: 06/27/2018 Bilateral Screening Mammogram, [facility]. 03/27/2020 Bilateral Screening Mammogram, [facility]. 06/05/2021 Bilateral Screening Mammogram, [facility]. Tissue Density: There are scattered fibroglandular densities. Findings: Analyzed By CAD. Microclip lateral left breast from prior biopsy. There is no suspicious group of microcalcifications or new suspicious mass in either breast. Overall Assessment: Benign, BI-RAD 2 Management: Screening Mammogram of both breasts in 1 year. Please see note below in regards to patient's increased five-year Adrienne score as well as increased lifetime risk score. Patient should continue monthly self-breast exams. A clinical breast exam by your physician is recommended on an annual basis. This exam should not preclude additional follow-up of suspicious palpable abnormalities. Note on Adrienne scores and lifetime risk: 1. A Adrienne score greater than 3% is considered moderate risk. If this is the case, consider specialist referral to assess eligibility for a risk reducing agent. 2. If overall lifetime risk for the development of breast cancer is 20% or higher, the patient may qualify for future screening with alternating mammogram and breast MRI. Electronically signed and approved by: Arnoldo Good M.D. Radiologist
== END | disposition home or self-care (01) ==
LOC: RADMAMWWP 14:29
PROVIDERS: ATTEND Family Medicine
DX: Z12.31 Encounter for screening mammogram for malignant neoplasm of breast (principal); Z78.0 Asymptomatic menopausal state; Z80.3 Family history of malignant neoplasm of breast
CPT/HCPCS: 77063; 77067

== ENCOUNTER → 2023-03-23 | Outpatient (CLI) | payer BC, OTHER ==
--- NOTE | 2023-04-05 20:30 | MR ---
EXAMINATION TYPE: MR ankle LT wo con DATE OF EXAM: 03/23/2023 COMPARISON: NONE HISTORY: 57-year-old female M2 5.532, M2 5.572, Lt ankle pain, swelling TECHNIQUE: Multiplanar, multisequence images of the left ankle were obtained without IV contrast. FINDINGS: There is focal intense edema involving the medial cuneiform. On axial PD sequences, possible subtle n ondisplaced fracture lines within the distal aspect of the cuneiform bone, reference axial images 15 through 17. Subchondral increased signal change at the second, fourth, and fifth TMT joints compatible with unde rlying osteoarthritic change. The tibiotalar joint and subtalar joints appear intact. Small effusion within the posterior tibiotalar joint. There is some spurring along the dorsal talar neck which may contribute to mechanical anterior ankle impingement symptoms. Achilles tendon is intact. Origin of the plantar fascia is intact. The signal within the sinus Tarsi is preserved. Tarsal tunnel is clear. Lateral peroneal tendons appear intact. The ATFL and CFL appear intact. Mild edema along the PTFL cou ld represent a low-grade sprain. Deltoid and spring ligament appears intact. There is mild to moderate tenosynovial fluid along the posterior tibial tendon. Mild along the flexor hallucis longus tendon. These medial flexor tendons otherwise appear intact. Edema along the plantar hindfoot musculature is nonspecific. IMPRESSION: 1. Intense focal edema involving the middle cuneiform. Axial PD sequence suggests possible subtle non displaced fracture. 2. Scattered mild to moderate osteoarthritic change second, fourth, and fifth TMT joints. 3. Strain of some of the deep plantar hindfoot musculature. 4. Possible grade 1 PTFL sprain. 5. Mild to moderate fluid along the posterior tibial tendon could be physiologic or could represent a nonspecific mild tenosynovitis.
== END | disposition home or self-care (01) ==
LOC: RADMRIMAIN 17:52
PROVIDERS: ATTEND Family Medicine
DX: M19.072 Primary osteoarthritis, left ankle and foot (principal); M25.532 Pain in left wrist

== ENCOUNTER → 2024-02-10 | Outpatient (CLI) | payer BC, OTHER ==
--- NOTE | 2024-02-17 21:47 | MM ---
Reason for Exam: Screening (asymptomatic). Last mammogram was performed 1 year(s) and 1 month(s) ago. Patient History: Menarche at age 10. Patient has no children. Left ovary removed at age 42. Right ovary removed at age 42. Hysterectomy at age 42. Postmenopausal. Previous Atypical Lobular Hyperplasia at age 41. 03/23/2007, High risk Core Biopsy on the left side. Risk Values: Octaviano 5 year model risk: 3.9%. NCI Lifetime model risk: 19.6%. Prior Study Comparison: 03/27/2020 Bilateral Screening Mammogram, [facility]. 06/05/2021 Bilateral Screening Mammogram, [facility]. 01/07/2023 Bilateral MG 3D screening mammo w/cad, [facility]. Tissue Density: There are scattered areas of fibroglandular density. Findings: Analyzed By CAD. Microclip left breast from prior biopsy. There is no suspicious group of microcalcifications or new suspicious mass in either breast. Overall Assessment: Negative, BI-RAD 1 Management: Screening Mammogram of both breasts in 1 year. SEE NOTE BELOW IN REGARDS TO THE PATIENT'S INCREASED 5 YEAR OCTAVIANO SCORE AND INCREASED LIFETIME RISK SCORE. Patient should continue monthly self-breast exams. A clinical breast exam by your physician is recommended on an annual basis. This exam should not preclude additional follow-up of suspicious palpable abnormalities. Note on Octaviano scores and lifetime risk: 1. A Octaviano score greater than 3% is considered moderate risk. If this is the case, consider specialist referral to assess eligibility for a risk reducing agent. 2. If overall lifetime risk for the development of breast cancer is 20% or higher, the patient may qualify for future screening with alternating mammogram and breast MRI. Electronically signed and approved by: Arnoldo Good M.D. Radiologist
== END | disposition home or self-care (01) ==
LOC: RADMAMWWP 07:46
PROVIDERS: ATTEND Family Medicine
DX: Z12.31 Encounter for screening mammogram for malignant neoplasm of breast (principal); R92.323 Mammographic fibroglandular density, bilateral breasts; Z78.0 Asymptomatic menopausal state
CPT/HCPCS: 77063; 77067

== ENCOUNTER 2024-09-18 04:20 | Emergency (ER) | payer BC, OTHER ==
[2024-09-18 04:29] VITALS: TEMP 97.9
--- NOTE | 2024-09-18 04:34 | ED ---
Recheck HPI - General Chief Complaint: Abdominal Pain Stated Complaint: Abd pain Time Seen by Provider: 09/18/24 04:24 Source: patient, RN notes reviewed, old records reviewed Mode of arrival: wheelchair Limitations: no limitations - History of Present Illness Initial Comments: This is a 59-year-old female with complex medical history hysterectomy fausto cystectomy and abdominal pain here in the ER occasional chest pain, patient symptoms are increased no fevers. No known travel history no sick contacts, patient is a reevaluation for this abdominal pain seen here recently in the emergency department -: days(s) Returns Today for: persistent/worsening pain related to initial visit Symptoms Since Prior Visit: worsening pain Associated Symptoms: chest pain, abdominal pain Treatments Prior to Arrival: Given Pain Meds on - Related Data Home Medications Medication Instructions Recorded Confirmed Citalopram Hydrobromide [CeleXA] 20 mg PO W/SUPPER 09/09/14 12/09/17 Diclofenac Potassium [Cataflam] 50 mg PO BID 09/09/14 12/09/17 Multivitamins, Thera [Multivitamin] 1 tab PO DAILY 09/09/14 12/09/17 HYDROcodone/APAP 7.5-325MG [Byron 1 tab PO Q6HR 10/21/16 12/09/17 7.5-325] metFORMIN HCL [Glucophage] 1,000 mg PO BID 05/24/17 12/09/17 Cholecalciferol [Vitamin D3] 2,000 unit PO DAILY 07/27/17 12/09/17 Pioglitazone HCl [Actos] 30 mg PO W/SUPPER 07/27/17 12/09/17 Atorvastatin [Lipitor] 40 mg PO W/SUPPER 07/28/17 12/09/17 Pantoprazole Sodium [Protonix] 40 mg PO DAILY 07/28/17 12/09/17 lisinopriL [Zestril] 2.5 mg PO W/SUPPER 07/28/17 12/09/17 Previous Rx's Medication Instructions Recorded HYDROcodone/APAP 5-325MG [Byron 5] 1 each PO Q6HR PRN #12 tab 02/20/21 Allergies Allergy/AdvReac Type Severity Reaction Status Date / Time No Known Allergies Allergy Verified 08/31/22 07:26 Review of Systems ROS Statement: Those systems with pertinent positive or pertinent negative responses have been documented in the HPI. ROS Other: All systems not noted in ROS Statement are negative. Past Medical History Past Medical History: Diabetes Mellitus, GERD/Reflux, Osteoarthritis (OA), Sleep Apnea/CPAP/BIPAP Additional Past Medical History / Comment(s): KIDNEY STONES, hx. of ulcer, constipation/diarrhea, History of Any Multi-Drug Resistant Organisms: MRSA Date of last positivie culture/infection: 2002 MDRO Source:: abdomen Past Surgical History: Adenoidectomy, Cholecystectomy, Hysterectomy, Orthopedic Surgery, Tonsillectomy Additional Past Surgical History / Comment(s): bilateral carpal tunnel release , right shoulder rotator cuff, eye surgery for strabismus, salivary gland/stone and cyst, abdominal surgery to remove MRSA, Cataract kayley eyes Past Anesthesia/Blood Transfusion Reactions: No Reported Reaction Past Psychological History: Depression Smoking Status: Former smoker Past Alcohol Use History: None Reported Past Drug Use History: None Reported - Past Family History Sister(s) Family Medical History: Cancer Additional Family Medical History / Comment(s): ovarian General Exam General appearance: alert, in no apparent distress Head exam: Present: atraumatic, normocephalic, normal inspection Eye exam: Present: normal appearance, PERRL, EOMI. Absent: scleral icterus, conjunctival injection, periorbital swelling ENT exam: Present: normal exam, mucous membranes moist Neck exam: Present: normal inspection. Absent: tenderness, meningismus, lymphadenopathy Respiratory exam: Present: normal lung sounds bilaterally. Absent: respiratory distress, wheezes, rales, rhonchi, stridor Cardiovascular Exam: Present: regular rate, normal rhythm, normal heart sounds. Absent: systolic murmur, diastolic murmur, rubs, gallop, clicks GI/Abdominal exam: Present: soft, normal bowel sounds. Absent: distended, tende rness, guarding, rebound, rigid Extremities exam: Present: normal inspection, full ROM, normal capillary refill. Absent: tenderness, pedal edema, joint swelling, calf tenderness Back exam: Present: normal inspection Neurological exam: Present: alert, oriented X3, CN II-XII intact Psychiatric exam: Present: normal affect, normal mood Skin exam: Present: warm, dry, intact, normal color. Absent: rash Course Vital Signs 09/18/24 09/18/24 09/18/24 04:22 06:16 07:26 Temperature 97.9 F Pulse Rate 65 62 60 Respiratory 18 16 18 Rate Blood Pressure 109/61 110/62 137/77 O2 Sat by Pulse 99 97 97 Oximetry - Reevaluation(s) Reevaluation #1: Medical records reviewed Reevaluation #2: Patient symptoms improved Reevaluation #3: Patient informed of results questions answered Reevaluation #4: Was pt. sent in by a medical professional or institution (, ARTEMIO, MINER OPERATOR, urgent care, hospital, or senior living...) When possible be specific @ -no Did you speak to anyone other than the patient for history (EMS, parent, family, police, friend...)? What history was obtained from this source @ -no Did you review nursing and triage notes (agree or disagree)? Why? @ -agree Are old charts reviewed (outside hosp., previous admission, EMS record, old EKG, old radiological studies, urgent care reports/EKG's, senior living records)? Report findings @ -yes Differential Diagnosis (chest pain, altered mental status, abdominal pain women, abdominal pain men, vaginal bleeding, weakness, fever, dyspnea, syncope, headache, dizziness, GI bleed, back pain, seizure, CVA, palpatations, mental health, musculoskeletal)? @ -prior EKG interpreted by me (3pts min.). @ -yes X-rays interpreted by me (1pt min.). @ -no CT interpreted by me (1pt min.). @ -yes negative for acute disease U/S interpreted by me (1pt. min.). @ -no What testing was considered but not performed or refused? (CT, X-rays, U/S, labs)? Why? @ -none What meds were considered but not given or refused? Why? @ -none Did you discuss the management of the patient with other professionals (professionals i.e. , ARTEMIO, MINER OPERATOR, lab, RT, psych nurse, social media community manager, business coordinator, teacher, tank officer, case checker)? Give summary @ -no Was smoking cessation discussed for >3mins.? @ -no Was critical care preformed (if so, how long)? @ -no Were there social determinants of health that impacted care today? How? (Homelessness, low income, unemployed, alcoholism, drug addiction, transportation, low edu. Level, literacy, decrease access to med. care, group home, rehab)? @ -none Was there de-escalation of care discussed even if they declined (Discuss DNR or withdrawal of care, Hospice)? DNR status @ -no What co-morbidities impacted this encounter? (DM, HTN, Smoking, COPD, CAD, Cancer, CVA, ARF, Chemo, Hep., AIDS, mental health diagnosis, sleep apnea, morbid obesity)? @ -none Was patient admitted / discharged? Hospital course, mention meds given and route, prescriptions, significant lab abnormalities, going to OR and other perti nent info. @ - 59 female to ER with complicated surgical history hysterectomy cholecystectomy history of kidney stones presenting for abdominal pain chest pain. Patient has never had negative imaging here in the ER symptoms are resolved no acute distress and can be discharged home Discharge Undiagnosed new problem with uncertain prognosis? @ -no Drug Therapy requiring intensive monitoring for toxicity (Heparin, Nitro, Insulin, Cardizem)? @ -no Were any procedures done? @ -no Diagnosis/symptom? @ -Chest pain abdominal pain Acute, or Chronic, or Acute on Chronic? @ -Acute Uncomplicated (without systemic symptoms) or Complicated (systemic symptoms)? @ -Complicated Side effects of treatment? @ -no Exacerbation, Progression, or Severe Exacerbation? @ -exacerbation Poses a threat to life or bodily function? How? (Chest pain, [place], [place], pneumonia, PE, COPD, DKA, ARF, appy, cholecystitis, CVA, Diverticulitis, Homicidal, Suicidal, threat to staff... and all critical care pts) @ -yes with chest pain Reevaluation #5: Differential Abdominal Pain Women: Appendicitis, Cholecystitis, diverticulosis, ischemic bowel, pancreatitis, hepatitis, UTI, gastroenteritis, AAA, incarcerated hernia, bowel obstruction, constipation, inflammatory bowel, hepatitis, peptic ulcer disease, splenic infarction, perforated viscus, vulvitis, ovarian torsion, PID, kidney stone, pl acenta abruption, this is not meant to be an all-inclusive list Differential Chest Pain: Stable Angina, Unstable Angina, STEMI, NSTEMI Aortic Dissection, Pneumothorax, Musculoskeletal, Esophageal Spasm GERD, Cholecystitis, Pancreatitis, Zoster, this is not meant to be an all-inclusive list. Medical Decision Making - Medical Decision Making 59 female to ER with complicated surgical history hysterectomy cholecystectomy history of kidney stones presenting for abdominal pain chest pain. Patient has never had negative imaging here in the ER symptoms are resolved no acute distress and can be discharged home - Lab Data Result diagrams: 09/18/24 04:33 09/18/24 04:33 Lab Results 09/18/24 09/18/24 09/18/24 Range/Units 04:33 04:33 04:33 WBC 5.8 (3.8-10.6) k/uL RBC 3.99 (3.80-5.40) m/uL Hgb 11.9 (11.4-16.0) gm/dL Hct 37.5 (34.0-46.0) % MCV 94.0 (80.0-100.0) fL MCH 29.9 (25.0-35.0) pg MCHC 31.8 (31.0-37.0) g/dL RDW 13.0 (11.5-15.5) % Plt Count 248 (150-450) k/uL MPV 7.3 Neutrophils % 57 % Lymphocytes % 30 % Monocytes % 6 % Eosinophils % 5 % Basophils % 1 % Neutrophils # 3.3 (1.3-7.7) k/uL Lymphocytes # 1.7 (1.0-4.8) k/uL Monocytes # 0.4 (0-1.0) k/uL Eosinophils # 0.3 (0-0.7) k/uL Basophils # 0.0 (0-0.2) k/uL PT 12.1 (10.0-12.5) sec INR 1.1 (<1.2) APTT 25.3 (22.0-30.0) sec D-Dimer 1.18 H (<0.60) mg/L FEU Sodium 135 L (137-145) mmol/L Potassium 4.2 (3.5-5.1) mmol/L Chloride 102 (98-107) mmol/L Carbon Dioxide 26 (22-30) mmol/L Anion Gap 7 mmol/L BUN 12 (7-17) mg/dL Creatinine 0.69 (0.52-1.04) mg/dL Est GFR (CKD-EPI)AfAm >90 (>60 ml/min/1.73 sqM) Est GFR (CKD-EPI)NonAf >90 (>60 ml/min/1.73 sqM) Glucose 91 (74-99) mg/dL Plasma Lactic Acid Bernardo (0.7-2.0) mmol/L Calcium 9.1 (8.4-10.2) mg/dL Phosphorus 3.9 (2.5-4.5) mg/dL Magnesium 1.7 (1.6-2.3) mg/dL Total Bilirubin 0.8 (0.2-1.3) mg/dL AST 185 H (14-36) U/L ALT 157 H (4-34) U/L Alkaline Phosphatase 169 H (38-126) U/L Troponin I (0.000-0.034) ng/mL C-Reactive Protein 0.9 (<1.0) mg/dL NT-Pro-B Natriuret Pep 55 pg/mL Total Protein 6.3 (6.3-8.2) g/dL Albumin 3.6 (3.5-5.0) g/dL Lipase 45 (23-300) U/L Urine Color Urine Appearance (Clear) Urine pH (5.0-8.0) Ur Specific [place] (1.001-1.035) Urine Protein (Negative) Urine Glucose (UA) (Negative) Urine Ketones (Negative) Urine Blood (Negative) Urine Nitrite (Negative) Urine Bilirubin (Negative) Urine Urobilinogen (<2.0) mg/dL Ur Leukocyte Esterase (Negative) 09/18/24 09/18/24 09/18/24 Range/Units 04:33 04:33 04:45 WBC (3.8-10.6) k/uL RBC (3.80-5.40) m/uL Hgb (11.4-16.0) gm/dL Hct (34.0-46.0) % MCV (80.0-100.0) fL MCH (25.0-35.0) pg MCHC (31.0-37.0) g/dL RDW (11.5-15.5) % Plt Count (150-450) k/uL MPV Neutrophils % % Lymphocytes % % Monocytes % % Eosinophils % % Basophils % % Neutrophils # (1.3-7.7) k/uL Lymphocytes # (1.0-4.8) k/uL Monocytes # (0-1.0) k/uL Eosinophils # (0-0.7) k/uL Basophils # (0-0.2) k/uL PT (10.0-12.5) sec INR (<1.2) APTT (22.0-30.0) sec D-Dimer (<0.60) mg/L FEU Sodium (137-145) mmol/L Potassium (3.5-5.1) mmol/L Chloride (98-107) mmol/L Carbon Dioxide (22-30) mmol/L Anion Gap mmol/L BUN (7-17) mg/dL Creatinine (0.52-1.04) mg/dL Est GFR (CKD-EPI)AfAm (>60 ml/min/1.73 sqM) Est GFR (CKD-EPI)NonAf (>60 ml/min/1.73 sqM) Glucose (74-99) mg/dL Plasma Lactic Acid Bernardo 0.7 (0.7-2.0) mmol/L Calcium (8.4-10.2) mg/dL Phosphorus (2.5-4.5) mg/dL Magnesium (1.6-2.3) mg/dL Total Bilirubin (0.2-1.3) mg/dL AST (14-36) U/L ALT (4-34) U/L Alkaline Phosphatase (38-126) U/L Troponin I <0.012 (0.000-0.034) ng/mL C-Reactive Protein (<1.0) mg/dL NT-Pro-B Natriuret Pep pg/mL Total Protein (6.3-8.2) g/dL Albumin (3.5-5.0) g/dL Lipase (23-300) U/L Urine Color Yellow Urine Appearance Clear (Clear) Urine pH 5.5 (5.0-8.0) Ur Specific [place] 1.018 (1.001-1.035) Urine Protein Negative (Negative) Urine Glucose (UA) Negative (Negative) Urine Ketones Negative (Negative) Urine Blood Negative (Negative) Urine Nitrite Negative (Negative) Urine Bilirubin Negative (Negative) Urine Urobilinogen 2.0 (<2.0) mg/dL Ur Leukocyte Esterase Negative (Negative) - EKG Data -: EKG Interpreted by Me (EKG is sinus 54 TX 177 QRS 93 QTc 441) - Radiology Data Radiology results: report reviewed (CTA chest CT abdomen pelvis negative for acute disease), image reviewed Disposition Clinical Impression: Chest pain, Abdominal pain Disposition: HOME SELF-CARE Condition: Fair Instructions (If sedation given, give patient instructions): Abdominal Pain (ED) Is patient prescribed a controlled substance at d/c from ED?: No Referrals: Jordin Whitley DO [Primary Care Provider] - 1-2 days Time of Disposition: 07:00
[2024-09-18 05:11] LABS: Basophils % (A) 1 %; Eosinophils # (A) 0.3 k/uL (0-0.7); Eosinophils % (A) 5 %; HCT 37.5 % (34.0-46.0); HGB 11.9 gm/dL (11.4-16.0); Lymphocytes # (A) 1.7 k/uL (1.0-4.8); Lymphocytes % (A) 30 %; MCH 29.9 pg (25.0-35.0); MCHC 31.8 g/dL (31.0-37.0); Mean Platelet Volume 7.3; Monocytes # (A) 0.4 k/uL (0-1.0); Monocytes % (A) 6 %; Neutrophils # (A) 3.3 k/uL (1.3-7.7); Neutrophils % (A) 57 %; Platelet Count 248 k/uL (150-450); RBC 3.99 m/uL (3.80-5.40); WBC 5.8 k/uL (3.8-10.6)
[2024-09-18] MEDS: SODIUM CHLORIDE 0.9% 1,000 ML IV STA (05:12)
[2024-09-18] MEDS: SODIUM CHLORIDE 0.9% 500 ML 500 ML IV STA (05:12)
[2024-09-18] MEDS: ONDANSETRON 4 MG/2 ML VIAL IVP STA (05:13)
[2024-09-18] MEDS: KETOROLAC 15 MG/ML 1 ML VIAL IVP STA (05:13)
[2024-09-18] MEDS: MORPHINE SULFATE 4 MG/ML SYRINGE IV STA (05:14)
[2024-09-18 05:20] LABS: Appearance,Urine Clear (Clear); Bilirubin,Urine Negative (Negative); Blood,Urine Negative (Negative); Color,Urine Yellow; Glucose,Urine (UA) Negative (Negative); Ketones,Urine Negative (Negative); Leukocyte Esterase,Urine Negative (Negative); Nitrite,Urine Negative (Negative); PH, Urine 5.5 (5.0-8.0); Protein,Urine Negative (Negative); Specific Gravity,Urine 1.018 (1.001-1.035)
[2024-09-18 05:25] LABS: INR 1.1 (<1.2); Partial Thromboplastin Time 25.3 sec (22.0-30.0); Prothrombin Time 12.1 sec (10.0-12.5)
[2024-09-18 05:30] LABS: ALT 157 U/L (4-34); AST 185 U/L (14-36); African American GFR (CKD) >90 (>60 ml/min/1.73 sqM); Albumin 3.6 g/dL (3.5-5.0); Alkaline Phosphatase 169 U/L (38-126); Anion Gap 7 mmol/L; Blood Urea Nitrogen 12 mg/dL (7-17); C Reactive Protein 0.9 mg/dL (<1.0); Calcium 9.1 mg/dL (8.4-10.2); Carbon Dioxide 26 mmol/L (22-30); Chloride 102 mmol/L (98-107); Glucose 91 mg/dL (74-99); Lipase 45 U/L (23-300); Magnesium 1.7 mg/dL (1.6-2.3); Non-African American GFR(CKD) >90 (>60 ml/min/1.73 sqM); Phosphorus 3.9 mg/dL (2.5-4.5); Potassium 4.2 mmol/L (3.5-5.1); Sodium 135 mmol/L (137-145); Total Bilirubin 0.8 mg/dL (0.2-1.3); Total Protein 6.3 g/dL (6.3-8.2)
[2024-09-18 05:36] LABS: NT-Pro-B-Type Natriuretic Pept 55 pg/mL
--- NOTE | 2024-09-18 06:14 | CT ---
EXAMINATION TYPE: CT chest angio for PE DATE OF EXAM: 09/18/2024 6:08 AM COMPARISON: None. CLINICAL INDICATION: Female, 59 years old with history of ELEVATED D DIMER, ELEVATED D-DIMER 1.18, RL Q abdominal pain - unresolved from previous visit, TECHNIQUE: CT of the chest is performed on a spiral scan at 2 mm thick sections. Study is performed with intravenous contrast timed for evaluation for pulmonary embolism. This will limit additional po rtions of the evaluation. 3-D MIP images reconstructed by the technologist are reviewed on the compu ter in the coronal and sagittal planes. Contrast used:iso 370 100mL combined with another exam mL of Isovue 370 with IV Contrast, (none if em pty) Oral contrast used: (none if empty) CT DLP: 467.9 mGycm, Automated exposure control for dose reduction was used. FINDINGS: No persistent filling defects are evident to suggest an acute pulmonary embolism. No mediastinal or hilar adenopathy enlarged by CT criteria is evident. The ascending aorta diameter at the level of the main pulmonary artery is 3.5 cm. The main pulmonary artery diameter at the bifurcation is 3.1 cm. There is a minimal right pleural effusion. No suspicious infiltrates or consolidations. Limited CT sections were through the upper abdomen. Upper abdomen appears unremarkable. IMPRESSION: 1. No acute pulmonary embolism. 2. Minimal right pleural effusion. [facility], , 09/18/2024 6:12 AM
--- NOTE | 2024-09-18 06:22 | CT ---
EXAMINATION TYPE: CT abdomen pelvis w con DATE OF EXAM: 09/18/2024 6:10 AM COMPARISON: None. CLINICAL INDICATION: Female, 59 years old with history of pain, ELEVATED D-DIMER 1.18, RLQ abdominal pain - unresolved from previous visit TECHNIQUE: Axial images were obtained from above the diaphragm to the pubic rami in the axial plane a t 5 mm thick sections. Reconstructed images are reviewed on the computer in the coronal plane. CONTRAST: 100 ml combined with another exam mL of Isovue 370. Study performed without Oral Contrast. Oral contrast remains present from prior exam. DLP: 942.2 mGycm, Automated exposure control for dose reduction was used. FINDINGS: Limited CT sections are obtained the lung bases. There is minimal right pleural effusion. CT ABDOMEN: Liver: Normal Spleen: Normal Pancreas: Atrophic with fatty infiltration Adrenal glands: The adrenal glands are normal. Gallbladder: Surgically absent Kidneys: No masses are evident. No hydronephrosis is present. No cysts are present. Delayed images were obtained through the kidneys, which remain unremarkable. Aorta: Normal Inferior vena cava: Normal. CT PELVIS: Loops of bowel within the abdomen and pelvis are normal. There are loops of bowel which are incom pletely distended or lack oral contrast limiting their evaluation. Oral contrast present from prior e xamination. Appendix: Normal as visualized. This has a normal caliber and contains contrast. No adjacent inflamma tory changes evident. Urinary bladder: Decompressed with limited evaluation Genitourinary structures: Uterus and ovaries are not identified Osseous structures: No suspicious lytic or sclerotic lesions. Degenerative disc changes are present w ithin the lumbar spine greatest at L5-S1 facet hypertrophy is present spondylosis within the lower th oracic spine. Previous paraspinal gas in lower thoracic region has resolved. IMPRESSION: 1. No suspicious abnormalities of the right lower quadrant pain. 2. Minimal right pleural effusion [facility], , 09/18/2024 6:20 AM
[2024-09-18 07:27] VITALS: BP 137/77; PULSE 60; RESP 18
[2024-09-18] MEDS: HYDROmorphone 1 MG/ML 1 ML SYRINGE IVP STA (07:32)
== END 2024-09-18 07:43 | disposition home or self-care (01) ==
LOC: EC 04:20
DX: R07.9 Chest pain, unspecified (principal); R10.9 Unspecified abdominal pain; Z87.891 Personal history of nicotine dependence
CPT/HCPCS: 36415; 93005; 85379; 83880; 80053; 83605; 83690; 83735; 84100; 84484; 85025; 85610; 85730; 86140; 81003; 71275; 74177; 99284; 96374; 96375; 96361; J2270; J2405; J1885; Q9967

== ENCOUNTER → 2024-10-31 | Outpatient (CLI) | payer BC, OTHER ==
--- NOTE | 2024-10-31 21:41 | MR ---
EXAMINATION TYPE: MR cervical spine wo con DATE OF EXAM: 10/31/2024 8:54 PM COMPARISON: 04/25/2014. CLINICAL INDICATION: Female, 59 years old with history of M47.24, neck pain, right arm pain, upper ba ck pain since 2024 due to fall. TECHNIQUE: Multi planar, multi sequence imaging was performed utilizing: T1-weighted, T2-weighted, an d turbo inversion recovery imaging of the cervical spine. IV Contrast: mL (None, if empty) FINDINGS: Alignment: The cervical vertebral bodies have preserved heights. Alignment is within normal limits gi ave patient positioning. Bones: Bone signal is within normal limits. No abnormal bone marrow edema on inversion recovery seque nces. Cord: The spinal cord is unremarkable with regards to their signal intensity and morphology. Discs: Intervertebral disc signal is maintained. C2-C3: No significant disc pathology. The spinal canal is patent. No neural foraminal stenosis. C3-C4: No significant disc pathology. The spinal canal is patent. Bilateral facet and uncovertebral joint arthropathy are present with moderate right and mild left neural foraminal stenosis. C4-C5: No significant disc pathology. The spinal canal is patent. Bilateral facet and uncovertebral joint arthropathy are present with mild bilateral neural foraminal stenosis. C5-C6: No significant disc pathology. The spinal canal is patent. Bilateral facet and uncovertebral joint arthropathy are present with mild to moderate neural foraminal stenosis. C6-C7: No significant disc pathology. The spinal canal is patent. No neural foraminal stenosis. C7-T1: No significant disc pathology. The spinal canal is patent. No neural foraminal stenosis. Other: None. IMPRESSION: 1. No evidence for disc herniation or significant spinal canal stenosis. 2. Mild disc degeneration with associated osteoarthritic changes with neural foraminal stenosis worse at C3-C4 and mild to moderate and C5-C6 with mild to moderate [facility], , 10/31/2024 9:38 PM
== END | disposition home or self-care (01) ==
LOC: RADMRIMAIN 20:45
PROVIDERS: ATTEND Family Medicine
DX: M48.02 Spinal stenosis, cervical region (principal); M50.322 Other cervical disc degeneration at C5-C6 level; M47.24 Other spondylosis with radiculopathy, thoracic region
CPT/HCPCS: 72141

== ENCOUNTER → 2024-11-24 | Outpatient (CLI) | payer BC, OTHER ==
--- NOTE | 2024-11-25 13:05 | MR ---
EXAMINATION TYPE: MR lumbar spine wo con DATE OF EXAM: 11/24/2024 6:18 PM COMPARISON: 11/01/2018 CLINICAL INDICATION: Female, 59 years old with history of M54.50, M54.51, Low back pain that radiates down legs. IV Contrast: cc (None if empty) TECHNIQUE: Multiplanar, multisequence images of the lumbar spine were acquired without IV contrast. L1-L2: Normal disc appearance without desiccation. No herniation, protrusion or disc bulging. No ca nal stenosis is present. Foramina are patent bilaterally. L2-L3: Severe disc desiccation with circumferential disc bulge. Effacement of the ventral thecal sac with hypertrophy of the ligamentum flavum and facet joint arthropathy resulting in moderate central s tenosis. Trefoiling Of the cauda equina. Moderate bilateral foraminal encroachment. L3-L4: Mild to moderate disc desiccation with circumferential disc bulge greatest posteriorly. Efface ment ventral thecal sac with borderline to mild central stenosis. Moderate bilateral foraminal encroa chment. L4-L5: Grade 1 anterolisthesis L4 on L5 measuring 6 mm. Posterior disc bulge with severe central sten osis. Moderate bilateral foraminal encroachment. L5-S1: Grade 1 anterolisthesis L5 on S1 measuring 4 mm. Degenerative endplate marrow change. Posterio r disc bulge with underlying bilateral lateral recess stenosis. Moderate disc desiccation. Mild to mo derate bilateral foraminal encroachment. Lumbar segments are intact. No paraspinal masses are identified. Conus medullaris has a normal appe arance. IMPRESSION: 1. Degenerative disc disease as outlined above with multilevel central stenosis and foraminal encroac hment. [facility], , 11/25/2024 1:02 PM
== END | disposition home or self-care (01) ==
LOC: RADMRIMAIN 17:39
PROVIDERS: ATTEND Family Medicine
DX: M48.061 Spinal stenosis, lumbar region without neurogenic claudication (principal); M51.360 Other intervertebral disc degeneration, lumbar region with discogenic back pain only
CPT/HCPCS: 72148